=== PATIENT | male | born 1965 | race Caucasian/White ===

== ENCOUNTER 2017-04-06 12:55 | Outpatient (CLI) | payer BC ==
--- NOTE | 2017-04-06 14:51 | MRI ---
MRI OF THE RIGHT ELBOW: Date: 04/06/17 PROVIDED CLINICAL HISTORY: Right elbow pain status post injury. FINDINGS: Evaluation is limited due to metallic susceptibility artifact from hardware in the humeral shaft. There is evidence for a full thickness retracted tear of the distal biceps tendon from its radial at tachment and retraction proximally by about 6.3 cm. The brachialis and triceps insertions appear nor mal. There is evidence for partial thickness undersurface tearing involving the common extensor tendon or igin. The common flexor tendon origin appears intact. The medial and lateral elbow ligaments are suboptimally evaluated on this examination. No definite l igamentous abnormality is evident. There is noncircumscribed fluid signal intensity present within the subcutaneous adipose layer about the medial, posterior, and lateral aspects of the elbow. There is noncircumscribed fluid signal int ensity present within the fascial planes surrounding the distal biceps muscle. The courses of the re gional major neurovascular structures appear grossly unremarkable. No focal concerning regional anna ow signal abnormality is evident. The amount of fluid within the elbow joint appears physiologic. IMPRESSION: 1. Full thickness retracted biceps tendon tear as described above. 2. Findings compatible with partial thickness undersurface tearing involving the common extensor or igin. POS: OFF
== END 2017-04-06 12:56 | disposition home or self-care (01) ==
LOC: SCSMRI 12:55
PROVIDERS: ATTEND Orthopaedic Surgery
DX: M25.521 Pain in right elbow (principal); S46.211A Strain of muscle, fascia and tendon of other parts of biceps, right arm, initial encounter

== ENCOUNTER 2017-04-19 10:18 | Outpatient (CLI) | payer BC ==
[2017-04-19 11:45] LABS: #Eosinphils 0.1 thou/uL (0.0-0.7); #Lymphocytes 1.6 thou/uL (1.20-3.40); #Monocytes 0.4 thou/uL (0.11-0.59); #Neutrophils 6.5 thou/uL (1.40-6.50); %Basophils 0.1 % (0.0-1.0); %Eosinophils 0.7 % (0.0-10.0); %Lymphocytes 18.6 % (21.0-51.0); Hematocrit 44.9 % (42.0-52.0); Red Blood Cell (RBC) Count 5.11 mill/uL (4.70-6.10); White Blood Cell (WBC) Count 8.5 thou/uL (4.8-10.8)
[2017-04-19 12:03] LABS: Anion Gap 12 mmol/L (10-20); BUN (Urea Nitrogen) 10 mg/dL (8.9-20.6); Calc. Creatinine Clearance 0 mL/min (70-130); Calcium 8.9 mg/dL (7.8-10.44); Carbon Dioxide 22 mmol/L (22-29); Chloride 107 mmol/L (98-107); Estimated GFR-MDRD Greater than 90
--- NOTE | 2017-04-19 13:28 | EKG ---
Test Reason : Blood Pressure : / mmHG Vent. Rate : 063 BPM Atrial Rate : 063 BPM P-R Int : 152 ms QRS Dur : 098 ms QT Int : 442 ms P-R-T Axes : 039 -03 041 degrees QTc Int : 452 ms Normal sinus rhythm Minimal voltage criteria for LVH, may be normal variant Inferior infarct , age undetermined Abnormal ECG When compared with ECG of 28-JAN-2001 20:16, Inferior infarct is now Present Confirmed by DR. Ej YOUNGBLOOD ([id number]) on 04/19/2017 1:28:24 PM Referred By: IERO Confirmed By:DR. Ej YOUNGBLOOD
== END 2017-04-19 10:19 | disposition home or self-care (01) ==
LOC: LABBT 10:18
PROVIDERS: ATTEND Orthopaedic Surgery
DX: Z01.818 Encounter for other preprocedural examination (principal); S53.491A Other sprain of right elbow, initial encounter
CPT/HCPCS: 80048; 85025; 93005; 93010

== ENCOUNTER 2017-04-21 06:02 | Day surgery (SDC) | payer BC ==
[2017-04-19 10:50] VITALS: BMI 40.1
[2017-04-21] MEDS ORDERED: Fentanyl 100 MCG/2 ML VIAL ONE (06:24)
[2017-04-21] MEDS ORDERED: Midazolam HCl 2 mg/2 ml Vial ONE (06:24)
[2017-04-21] MEDS ORDERED: Ropivacaine 0.2% HCl/PF 20 ML ONE (06:25)
[2017-04-21] MEDS ORDERED: Lidocaine 1% (PF) 30 ML VIAL ONE ×2 (06:25→06:35)
[2017-04-21] MEDS ORDERED: Dexamethasone 4 mg/ml Vial ONE (06:37)
[2017-04-21] MEDS ORDERED: CEFAZOLIN/Water 2 GM/20 ML SYRINGE ONE (06:41)
[2017-04-21] MEDS ORDERED: Dexamethasone 20 MG/5 ML VIAL ONE (07:34)
[2017-04-21] MEDS ORDERED: Propofol 200 MG/20 ML VIAL ONE (07:34)
[2017-04-21] MEDS ORDERED: Ondansetron HCl/PF 4 MG/2 ML Vial ONE (07:34)
[2017-04-21] MEDS ORDERED: Ketorolac Tromethamine 30 MG/ML VIAL ONE (07:34)
--- NOTE | 2017-04-21 15:15 | OP ---
DATE OF PROCEDURE: 04/21/2017 PREOPERATIVE DIAGNOSIS: Right distal biceps rupture. POSTOPERATIVE DIAGNOSIS: Right distal biceps rupture. PROCEDURES PERFORMED: 1. Open distal biceps tendon repair. 2. Placement of long arm splint, right upper extremity. SURGEON: Hammad Vela M.D. HOG BUYER: Kervin Reyes PA-C. BLOOD LOSS: Minimal. ANESTHESIA: The patient had general anesthetic as well as a block. IMPLANTS: Biceps button from [employer]. INDICATIONS: This is an active male nearly 3 weeks ago now, ruptured his biceps tendon. On MRI scan, it was found to be torn and at this time is presenting for repair. DESCRIPTION OF PROCEDURE: After all appropriate consent forms were explained and signed, he was taken to the operating room and at this time was given general anesthetic. Once the level of anesthesia was appropriate, the right upper extremity were then prepped and draped in standard surgical fashion. Tourniquet was placed as far up in the arm as possible prior to doing this. At this time, the limb was exsanguinated and tourniquet taken up to 250 mmHg. Using loupe magnification, a 10 blade was used to make a horizontal incision in the distal crease of the elbow. This was done through skin only. Bipolar cautery was used to coagulate any brisk venous bleeding. At this time, we dissected out the vein and pulled this aside and we were able to go proximally to reach the biceps tendon. A copious amount of serosanguineous fluid was evacuated from this area. We then pulled this down and freshened the edges up and stitched this. We pulled tightly on this and knew that this is going to be very tight. At this time, we did find our hole leading down to the radial tuberosity and once this was done, radial tuberosity soft tissue was removed from this area. We then cleaned this off with a curette and rongeur. We then drilled a pin bicortically, reamed a 7 mm reamer unicortically and placed our Arth[employer] biceps button through, bicortically flipped it and then pulled the tendon down into the hole. This was very taut and was around 95-100 degrees of extension with the tendon engaged. When we went into more extension, the tendon pulled out, so we fixed this at 95-100 degrees of extension, hoping that the patient will stretch this out in the future and also when our tourniquet was let down. This was then tied in standard fashion. We then thoroughly irrigated and dried. We then used deep Vicryl and a running Stratafix as well as glue to close our incision. Once the glue had dried, the tourniquet was let down. We waited at least 5 minutes making sure we did not have any significant bleeding. The arm pinked up nice radial pulse and at this time, a bulky sterile dressing was applied as well as a posterior splint with the arm in nearly 90 degrees. Once this dried, the patient was awakened and taken to the recovery room in stable condition. All counts were correct at the end of the case and he did receive preoperative IV antibiotics. CHAY
== END 2017-04-21 11:00 | disposition home or self-care (01) ==
LOC: SDC 06:02
PROVIDERS: ATTEND Orthopaedic Surgery
PROC: 0LQ30ZZ Repair Right Upper Arm Tendon, Open Approach (ICD-10-PCS; principal; 2017-04-21)
DX: S46.211A Strain of muscle, fascia and tendon of other parts of biceps, right arm, initial encounter (principal); I10 Essential (primary) hypertension; M19.90 Unspecified osteoarthritis, unspecified site; F90.9 Attention-deficit hyperactivity disorder, unspecified type; J45.909 Unspecified asthma, uncomplicated; Z88.2 Allergy status to sulfonamides; Z79.899 Other long term (current) drug therapy; Z98.890 Other specified postprocedural states; Z82.49 Family history of ischemic heart disease and other diseases of the circulatory system; Z83.3 Family history of diabetes mellitus
CPT/HCPCS: C1713; J1100; J1885; J2001; J2250; J2405; J2704; J2795; J3010

== ENCOUNTER 2019-11-27 14:04 | Emergency (ER) | payer BC, SELFPAY ==
[2019-11-27] MEDS ORDERED: Potassium Chloride 20 MEQ TAB ONE (14:32)
[2019-11-27 16:18] LABS: Anion Gap 12 mmol/L (10-20); BUN (Urea Nitrogen) 20 mg/dL (8.4-25.7); Calc. Creatinine Clearance 0 mL/min (70-130); Calcium 9.4 mg/dL (7.8-10.44); Carbon Dioxide 30 mmol/L (22-29); Chloride 93 mmol/L (98-107); Estimated GFR-MDRD 77; Glucose 270 mg/dL (70-105); Sodium 132 mmol/L (136-145)
[2019-11-27 16:25] LABS: Potassium 2.8 mmol/L (3.5-5.1)
--- NOTE | 2019-11-30 12:56 | EKG ---
Test Reason : LOW K Blood Pressure : / mmHG Vent. Rate : 092 BPM Atrial Rate : 092 BPM P-R Int : 152 ms QRS Dur : 108 ms QT Int : 382 ms P-R-T Axes : 057 -12 096 degrees QTc Int : 472 ms Normal sinus rhythm Nonspecific ST and T wave abnormality Abnormal ECG Confirmed by ALBARO PEPE ([id number]), film or videotape editor STAR MOLINA ([id number]) on 11/30/2019 12:55:44 PM Referred By: ISAURA Confirmed By:ALBARO Sanders
== END 2019-11-27 16:45 | disposition home or self-care (01) ==
LOC: ERS 14:04
DX: E87.6 Hypokalemia (principal); I10 Essential (primary) hypertension; Z79.899 Other long term (current) drug therapy
CPT/HCPCS: 36415; 93005

== ENCOUNTER 2020-07-03 14:23 | Inpatient (IN) | payer SELFPAY ==
[~2020-07-03 14:23] MED LIST: Iopamidol-370 76% 500 ML 1 ML ONE
[2020-07-03] MEDS ORDERED: cefTRIAXone\\ROCEPHIN 2 GM VIAL ONE (14:53)
[2020-07-03] MEDS ORDERED: Azithromycin 500 MG VIAL ONE (14:53)
[2020-07-03] MEDS ORDERED: Dexamethasone 10 MG/ML VIAL ONE (14:53)
[2020-07-03 15:10] LABS: #Lymphocytes 0.6 thou/uL (1.20-3.40); #Monocytes 0.2 thou/uL (0.11-0.59); #Neutrophils 13.6 thou/uL (1.40-6.50); %Lymphocytes 4.2 % (21.0-51.0); %Monocytes 1.6 % (0.0-10.0); %Neutrophils 94.2 % (42.0-75.0); Hemoglobin 14.1 g/dL (14.0-18.0); Mean Corpuscular HGB CONC 33.8 g/dL (32.0-36.0); Mean Corpuscular Hemoglobin 28.8 pg (27.0-31.0); Mean Corpuscular Volume 85.1 fL (78.0-98.0); Mean Platelet Volume 8.2 fL (7.4-10.4); Platelet Count 270 thou/uL (130-400); RBC Distribution Width 12.7 % (11.5-14.5); Red Blood Cell (RBC) Count 4.91 mill/uL (4.70-6.10); White Blood Cell (WBC) Count 14.4 thou/uL (4.8-10.8)
--- NOTE | 2020-07-03 15:12 | RAD ---
Chest one view HISTORY: Dyspnea. COVID positive. COMPARISON: 02/05/2017. FINDINGS: Cardiac silhouette is magnified by projection and partially obscured by prominent patchy il l-defined areas of peripheral groundglass parenchymal infiltrate throughout each lung. No evidence of pneumothorax. Right hemidiaphragm remains slightly elevated. IMPRESSION : Dense multifocal bilateral infiltrates. Correlate for COVID pneumonitis.
[2020-07-03] MEDS ORDERED: Ketorolac Tromethamine 30 MG/ML VIAL ONE (15:13)
[2020-07-03 15:18] LABS: INR-International Normal Ratio 1.1; PTT 28.8 sec (22.9-36.1); Prothrombin Time 14.2 sec (12.0-14.7)
[2020-07-03 15:19] LABS: D-Dimer Test 1.12 *mcg/mL (0.27-0.43)
[2020-07-03 16:06] LABS: Albumin 3.4 g/dL (3.5-5.0)
[2020-07-03 16:07] LABS: Chloride 95 mmol/L (98-107); Potassium 4.3 mmol/L (3.5-5.1); Sodium 129 mmol/L (136-145)
[2020-07-03 16:08] LABS: Calcium 8.1 mg/dL (7.8-10.44); Glucose 412 mg/dL (70-105)
[2020-07-03 16:09] LABS: Globulin 3.7 g/dL (2.4-3.5); Protein, Total 7.1 g/dL (6.0-8.3)
[2020-07-03 16:10] LABS: Anion Gap 16 mmol/L (10-20); Bilirubin, Total 0.4 mg/dL (0.2-1.2); Carbon Dioxide 22 mmol/L (22-29)
[2020-07-03 16:11] LABS: Alkaline Phosphatase 96 U/L (40-110)
[2020-07-03 16:12] LABS: Calc. Creatinine Clearance 0 mL/min (70-130)
[2020-07-03 16:13] LABS: BUN (Urea Nitrogen) 15 mg/dL (8.4-25.7)
[2020-07-03 16:14] LABS: ALT (SGPT) 51 U/L (8-55); AST (SGOT) 24 U/L (5-34)
[2020-07-03 16:15] LABS: CK (CPK) 130 U/L (30-200)
--- NOTE | 2020-07-03 16:52 | CT ---
CT PULMONARY ANGIOGRAM WITH IV CONTRAST AND 3D POSTPROCESSIN07/03/20 HISTORY: 54-year-old male with difficulty breathing. COVID positive, status getting worse today. FINDINGS: The pulmonary arterial vasculature is inadequately opacified to satisfactorily evaluate for pulmonary embolism. The thoracic aorta is better opacified without evidence of aneurysmal dissection. No pleur al or pericardial effusions are seen. There are multifocal patchy areas of ground glass opacities and consolidation in the lung chambers bilaterally. There are prominent and mildly enlarged lymph nodes in the mediastinum measuring up to 12 mm. There are degenerative changes in the spine. Upper abdominal tomograms demonstrate fatty infiltration of the liver. IMPRESSION: 1. Exam is nondiagnostic for pulmonary embolism. 2. Findings are consistent with COVID-19 pneumonia. 3. Fatty liver. POS: ROGELIO
[2020-07-03] MEDS ORDERED: Ondansetron PF 4 MG/2 ML Vial IVP PRN (17:06)
[2020-07-03] MEDS ORDERED: Bisacodyl 5 MG TAB PO PRN (17:06)
[2020-07-03] MEDS ORDERED: Dextrose 5% in Water 1,000 ML IV PRN (17:09)
[2020-07-03] MEDS ORDERED: HumaLOG 300 UNITS/3 ML VIAL SC PRN (17:09)
[2020-07-03] MEDS ORDERED: Dextrose 50% Abboject 50 ML SYRINGE SLOW IVP PRN (17:09)
--- NOTE | 2020-07-03 17:19 | PDOC.HHP ---
Hospitalist HPI - History of Present Illness Shortness of breath History of Present Illness: Patient is a pleasant 54-year-old gentleman who was seen in the emergency room on July 03, 2020. He reports that he tested positive for Covid around June 25, 2020. His symptoms reportedly started around the same time, and he thinks he got it from his daughter because his daughter was sick with Covid before that. He reports generalized weakness, body aches, cough that is productive of sputum and shortness of breath. Shortness of breath is worse with exertion. He denies any chest pain. He denies any nausea, vomiting, diarrhea, loss of taste or loss of smell. He presented to the emergency room because of the above symptoms. In the emergency room, he was noted to be hypoxic and had to be transitioned to high flow oxygen. He was referred to hospitalist service for admission and further management. ED Course: Pulse: 115, Resp: 26, Temp: 100.5 (Oral), Pain: 0, O2 sat: 87 5L, Time: 07/03/2020 14:37. Hospitalist ROS - Review of Systems Constitutional: reports: weakness, malaise. denies: fever, chills, sweats Respiratory: reports: cough, shortness of breath, SOB with excertion, sputum. denies: dry, hemoptysis, pleuritic pain, wheezing Cardiovascular: denies: chest pain, palpitations, orthopnea, paroxysmal noc. dyspnea, edema, light headedness Gastrointestinal: denies: nausea, vomiting, abdominal pain, diarrhea, constipa tion, melena, hematochezia All other systems reviewed; all pertinent +/- noted in HPI/Subj - Medication Medications: Allergies: Sulfa Home medications: amLODIPine MonJul 03, 2020 15:21 AMAURI Dietrich Elizabeth tablet : Strength - 10 mg : ORAL Patient Dose: UNK mg Oral once a day. Adderall MonJul 03, 2020 15:21 AMAURI Dietrich Elizabeth tablet : Strength - 10 mg : ORAL Patient Dose: UNK mg Oral once a day. metFORMIN MonJul 03, 2020 15:21 AMAURI Dietrich Elizabeth tablet : Strength - 500 mg : ORAL Patient Dose: Unknown. traMADol MonJul 03, 2020 15:22 AMAURI Dietrich Elizabeth tablet : Strength - 50 mg : ORAL Patient Dose: Unknown. Hospitalist History - Past Medical History Other Medical History: Past medical history: Diabetes mellitus type 2 and hypertension Surgical history: Right knee surgery and right arm surgery Social history: Occasional alcohol use, patient denies tobacco use or recreational drug use. Family history: Pacemaker in his father. - Exam General Appearance: awake alert Eye: anicteric sclera ENT: normocephalic atraumatic Neck: supple, no thyromegaly Heart: RRR, no rubs Respiratory: normal chest expansion, rales, rhonchi Gastrointestinal: soft, non-tender, normal bowel sounds Extremities: no edema Skin: no rashes Musculoskeletal: no muscle wasting Psychiatric: normal affect, normal behavior, A&O x 3 Hospitalist Results - Labs Result Diagrams: 07/03/20 14:41 07/03/20 15:43 Lab results: WBC 14.4 thou/uL (4.8-10.8) H 07/03/20 14:41 Hgb 14.1 g/dL (14.0-18.0) 07/03/20 14:41 Hct 41.8 % (42.0-52.0) L 07/03/20 14:41 MCV 85.1 fL (78.0-98.0) 07/03/20 14:41 Plt Count 270 thou/uL (130-400) 07/03/20 14:41 Neutrophils % 94.2 % (42.0-75.0) H 07/03/20 14:41 Sodium 129 mmol/L (136-145) L 07/03/20 15:43 Potassium 4.3 mmol/L (3.5-5.1) 07/03/20 15:43 Chloride 95 mmol/L (98-107) L 07/03/20 15:43 Carbon Dioxide 22 mmol/L (22-29) 07/03/20 15:43 BUN 15 mg/dL (8.4-25.7) 07/03/20 15:43 Creatinine 1.04 mg/dL (0.7-1.3) 07/03/20 15:43 Glucose 412 mg/dL (70-105) H 07/03/20 15:43 Lactic Acid 3.0 mmol/L (0.5-2.2) H 07/03/20 14:41 Calcium 8.1 mg/dL (7.8-10.44) 07/03/20 15:43 Total Bilirubin 0.4 mg/dL (0.2-1.2) 07/03/20 15:43 AST 24 U/L (5-34) 07/03/20 15:43 ALT 51 U/L (8-55) 07/03/20 15:43 Alkaline Phosphatase 96 U/L (40-110) 07/03/20 15:43 Creatine Kinase 130 U/L (30-200) 07/03/20 15:43 Troponin I Less than 0.010 ng/mL (< 0.028) 07/03/20 14:41 Serum Total Protein 7.1 g/dL (6.0-8.3) 07/03/20 15:43 Albumin 3.4 g/dL (3.5-5.0) L 07/03/20 15:43 - Radiology Interpretation Chest x-ray Additional Comment: Chest one view HISTORY: Dyspnea. COVID positive. COMPARISON: 02/05/2017. FINDINGS: Cardiac silhouette is magnified by projection and partially obscured by prominent patchy il l-defined areas of peripheral groundglass parenchymal infiltrate throughout each lung. No evidence of pneumothorax. Right hemidiaphragm remains slightly elevated. IMPRESSION : Dense multifocal bilateral infiltrates. Correlate for COVID pneumonitis. CT scan - chest Additional Comment: CT PULMONARY ANGIOGRAM WITH IV CONTRAST AND 3D POSTPROCESSIN07/03/20 HISTORY: 54-year-old male with difficulty breathing. COVID positive, status getting worse today. FINDINGS: The pulmonary arterial vasculature is inadequately opacified to satisfactorily evaluate for pulmonary embolism. The thoracic aorta is better opacified without evidence of aneurysmal dissection. No pleur al or pericardial effusions are seen. There are multifocal patchy areas of ground glass opacities and consolidation in the lung chambers bilaterally. There are prominent and mildly enlarged lymph nodes in the mediastinum measuring up to 12 mm. There are degenerative changes in the spine. Upper abdominal tomograms demonstrate fatty infiltration of the liver. IMPRESSION: 1. Exam is nondiagnostic for pulmonary embolism. 2. Findings are consistent with COVID-19 pneumonia. 3. Fatty liver. Hospitalist H&P A/P - Problem (1) Acute respiratory failure with hypoxia Code(s): J96.01 - ACUTE RESPIRATORY FAILURE WITH HYPOXIA Status: Acute (2) Pneumonia due to COVID-19 virus Code(s): U07.1 - COVID-19; J12.82 - PNEUMONIA DUE TO CORONAVIRUS DISEASE 2019 Status: Acute (3) Sepsis Code(s): A41.9 - SEPSIS, UNSPECIFIED ORGANISM Status: Acute (4) Diabetes mellitus type 2 in obese Code(s): E11.69 - TYPE 2 DIABETES MELLITUS WITH OTHER SPECIFIED COMPLICATION; E66.9 - OBESITY, UNSPECIFIED Status: Chronic (5) Hypertension Code(s): I10 - ESSENTIAL (PRIMARY) HYPERTENSION Status: Chronic - Plan Plan: Patient to be admitted to hospital. Start dexamethasone, zinc and vitamin C. Patient has received ceftriaxone and azithromycin, continue for now. Follow inflammatory markers. Continue Accu-Cheks and insulin sliding scale. Monitor vital signs and titrate antihypertensives as needed. Level of risk: Moderate Level of complexity: Moderate Primary CARE provider:Dr. Vargas
[2020-07-03] MEDS ORDERED: Zinc Sulfate 220 MG CAP PO SCH (17:45)
[2020-07-03] MEDS ORDERED: Ascorbic Acid 500 mg Chewable Tablet PO SCH (17:45)
[2020-07-03 18:07] LABS: Lactic Acid 1.9 mmol/L (0.5-2.2)
[2020-07-03] MEDS: Zinc Sulfate 220 MG CAP PO SCH (19:14)
[2020-07-03] MEDS: Enoxaparin Sodium 40 MG/0.4 ML SYRINGE SC SCH (20:17)
[2020-07-04 05:40] LABS: Anion Gap 18 mmol/L (10-20); BUN (Urea Nitrogen) 20 mg/dL (8.4-25.7); Calc. Creatinine Clearance 208 mL/min (70-130); Calcium 8.5 mg/dL (7.8-10.44); Carbon Dioxide 22 mmol/L (22-29); Chloride 97 mmol/L (98-107); Glucose 352 mg/dL (70-105); Potassium 4.5 mmol/L (3.5-5.1); Sodium 132 mmol/L (136-145)
[2020-07-04 06:10] LABS: Hemoglobin 13.5 g/dL (14.0-18.0); Lymphocytes 15 % (21-51); MDiff Complete? YES; Mean Corpuscular Hemoglobin 28.3 pg (27.0-31.0); Mean Corpuscular Volume 85.8 fL (78.0-98.0); Mean Platelet Volume 8.4 fL (7.4-10.4); Neutrophil 85 % (42-75); Platelet Count 270 thou/uL (130-400); RBC Distribution Width 12.6 % (11.5-14.5); Red Blood Cell (RBC) Count 4.78 mill/uL (4.70-6.10); White Blood Cell (WBC) Count 10.2 thou/uL (4.8-10.8)
[2020-07-04] MEDS: HumaLOG 300 UNITS/3 ML VIAL SC PRN ×3 (06:11→16:19)
[2020-07-04] MEDS: Enoxaparin Sodium 40 MG/0.4 ML SYRINGE SC SCH ×2 (08:24→19:42)
[2020-07-04] MEDS: Ascorbic Acid 500 mg Chewable Tablet PO SCH (08:24)
[2020-07-04] MEDS ORDERED: FLU VACC QS2020-21(6MOS UP)/PF 60 MCG/0.5 ML SYRINGE IM ONE (09:00)
[2020-07-04] MEDS: Dexamethasone 4 mg/ml Vial SLOW IVP SCH (15:20)
[2020-07-04] MEDS: cefTRIAXone\\ROCEPHIN 1 GM in Sodium Chloride 0.9% 100 ML IVPB SCH (15:21)
[2020-07-04] MEDS: Azithromycin 500 MG in Sodium Chloride 0.9% 250 ML 250 ML IVPB SCH (16:13)
--- NOTE | 2020-07-04 17:12 | PDOC.HOSPP ---
- Subjective Encounter Date: 07/04/20 Encounter Time: 08:00 Subjective: Patient seen for follow-up regarding COVID-19 pneumonia. Reports feeling better - Objective Vital Signs & Weight: Vital Signs (12 hours) Temp Pulse Resp BP Pulse Ox 07/04/20 15:21 99 F 79 26 H 137/86 97 07/04/20 11:28 98.5 F 84 32 H 136/83 95 07/04/20 08:30 98.8 F 94 22 H 134/80 93 L Weight Weight 310 lb 14.4 oz I&O: 07/03/20 07/04/20 07/05/20 06:59 06:59 06:59 Intake Total 620 Output Total 1100 250 Balance -480 -250 Result Diagrams: 07/04/20 04:56 07/04/20 04:56 Additional Labs: Accuchecks 07/04/20 07/04/20 07/04/20 16:17 11:26 06:04 POC Glucose 311 H 339 H 349 H 07/03/20 20:15 POC Glucose 470 H Labs and MAR reviewed by fl Hospitalist ROS - Review of Systems Respiratory: reports: SOB with excertion Cardiovascular: denies: chest pain, palpitations, orthopnea, paroxysmal noc. dyspnea, edema, light headedness Gastrointestinal: denies: nausea, vomiting, abdominal pain, diarrhea, constipation, melena, hematochezia - Medication Medications: Active Medications Generic Name Dose Route Start Last Admin Trade Name Freq PRN Reason Stop Dose Admin Ascorbic Acid 1,000 mg 07/04/20 09:00 07/04/20 08:24 Ascorbic Acid 500 Mg Chewable Tablet PO 1,000 mg DAILY DARRELL Administration Dexamethasone 6 mg 07/04/20 15:00 07/04/20 15:20 Dexamethasone 4 Mg/Ml Vial SLOW IVP 6 mg 1500 DARRELL Administration Enoxaparin Sodium 40 mg 07/03/20 21:00 07/04/20 08:24 Enoxaparin Sodium 40 Mg/0.4 Ml Syringe SC 40 mg Q12HR DARRELL Administration Ceftriaxone Sodium 1 gm/ 100 mls @ 200 mls/hr 07/04/20 15:00 07/04/20 15:21 Sodium Chloride IVPB 100 mls Q24HR DARRELL Administration Azithromycin 500 mg/ Sodium 250 mls @ 250 mls/hr 07/04/20 15:30 07/04/20 1 6:13 Chloride IVPB 250 mls Q24HR DARRELL Administration Insulin Human Lispro 0 units 07/03/20 23:45 07/04/20 16:19 Humalog 300 Units/3 Ml Vial SC 8 unit .MODERATE SLIDING SC PRN Administration Moderate Correctional Scale Sodium Chloride 10 ml 07/03/20 21:00 07/04/20 08:26 Flush - Normal Saline 10 Ml Syringe IVF 10 ml Q12HR DARRELL Administration Zinc Sulfate 220 mg 07/04/20 09:00 07/03/20 19:14 Zinc Sulfate 220 Mg Cap PO 220 mg DAILY DARRELL Administration - Exam General Appearance: awake alert Eye: anicteric sclera ENT: moist mucosa Neck: supple Heart: RRR Respiratory: CTAB Gastrointestinal: soft, non-tender Skin: no rashes Psychiatric: normal affect, normal behavior Hosp A/P (1) Acute respiratory failure with hypoxia Code(s): J96.01 - ACUTE RESPIRATORY FAILURE WITH HYPOXIA Status: Acute (2) Pneumonia due to COVID-19 virus Code(s): U07.1 - COVID-19; J12.82 - PNEUMONIA DUE TO CORONAVIRUS DISEASE 2019 Status: Acute (3) Sepsis Code(s): A41.9 - SEPSIS, UNSPECIFIED ORGANISM Status: Acute (4) Diabetes mellitus type 2 in obese Code(s): E11.69 - TYPE 2 DIABETES MELLITUS WITH OTHER SPECIFIED COMPLICATION; E66.9 - OBESITY, UNSPECIFIED Status: Chronic (5) Hypertension Code(s): I10 - ESSENTIAL (PRIMARY) HYPERTENSION Status: Chronic - Plan - Plan Continue dexamethasone, zinc and vitamin C. Continue Rocephin and azithromycin. Follow inflammatory markers. Continue Accu-Cheks and insulin sliding scale. Monitor vital signs and titrate antihypertensives as needed.
[2020-07-04] MEDS: Pregabalin 50 MG CAP PO SCH (19:41)
[2020-07-04] MEDS: Insulin Glargine 10 UNITS in Pre-Filled Syringe 1 EACH SC SCH (19:42)
[2020-07-04] MEDS: Tramadol Hcl [Tramadol Hcl Er] 200 MG Tab.Er.24h PO SCH (21:51)
[2020-07-05 04:55] LABS: #Lymphocytes 1.2 thou/uL (1.20-3.40); #Monocytes 0.6 thou/uL (0.11-0.59); %Basophils 0.1 % (0.0-1.0); %Eosinophils 0.1 % (0.0-10.0); %Lymphocytes 10.4 % (21.0-51.0); %Monocytes 5.1 % (0.0-10.0); %Neutrophils 84.4 % (42.0-75.0); Mean Corpuscular HGB CONC 31.9 g/dL (32.0-36.0); Mean Corpuscular Hemoglobin 27.4 pg (27.0-31.0); Mean Corpuscular Volume 85.8 fL (78.0-98.0); Platelet Count 331 thou/uL (130-400); RBC Distribution Width 12.7 % (11.5-14.5); Red Blood Cell (RBC) Count 4.76 mill/uL (4.70-6.10); White Blood Cell (WBC) Count 11.8 thou/uL (4.8-10.8)
[2020-07-05 05:19] LABS: Anion Gap 14 mmol/L (10-20); BUN (Urea Nitrogen) 24 mg/dL (8.4-25.7); Calc. Creatinine Clearance 183 mL/min (70-130); Calcium 8.3 mg/dL (7.8-10.44); Carbon Dioxide 24 mmol/L (22-29); Chloride 99 mmol/L (98-107); Glucose 374 mg/dL (70-105); Potassium 4.3 mmol/L (3.5-5.1); Sodium 133 mmol/L (136-145)
[2020-07-05] MEDS: HumaLOG 300 UNITS/3 ML VIAL SC PRN ×4 (05:38→20:14)
[2020-07-05] MEDS: Enoxaparin Sodium 40 MG/0.4 ML SYRINGE SC SCH ×2 (08:03→20:14)
[2020-07-05] MEDS: Lisinopril 5 MG TAB PO SCH (08:04)
[2020-07-05] MEDS: Amlodipine 10 MG TAB PO SCH (08:04)
[2020-07-05] MEDS: Zinc Sulfate 220 MG CAP PO SCH (08:04)
[2020-07-05] MEDS: Pregabalin 50 MG CAP PO SCH ×2 (08:05→20:13)
[2020-07-05] MEDS: Ascorbic Acid 500 mg Chewable Tablet PO SCH (08:05)
[2020-07-05] MEDS ORDERED: D AMPHETAMINE 30 MG PO SCH (09:00)
[2020-07-05] MEDS: cefTRIAXone\\ROCEPHIN 1 GM in Sodium Chloride 0.9% 100 ML IVPB SCH (15:30)
[2020-07-05] MEDS: Dexamethasone 4 mg/ml Vial SLOW IVP SCH (15:31)
--- NOTE | 2020-07-05 16:00 | PDOC.HOSPP ---
- Subjective Encounter Date: 07/05/20 Encounter Time: 08:30 Subjective: Patient seen for follow-up regarding respiratory failure. He denies chest pain. - Objective Vital Signs & Weight: Vital Signs (12 hours) Temp Pulse Resp BP Pulse Ox 07/05/20 11:15 98.9 F 70 30 H 119/71 94 L 07/05/20 08:04 98 F 63 28 H 116/73 94 L 07/05/20 05:11 98 Weight Weight 310 lb 14.4 oz I&O: 07/04/20 07/05/20 07/06/20 06:59 06:59 06:59 Intake Total 620 2530 Output Total 1100 910 Balance -480 1620 Result Diagrams: 07/05/20 04:33 07/05/20 04:33 Additional Labs: Accuchecks 07/05/20 07/05/20 07/04/20 15:35 11:14 19:44 POC Glucose 192 H 293 H 347 H 07/04/20 16:17 POC Glucose 311 H I reviewed patient's labs and MAR EKG Reviewed by me: Yes (Normal sinus rhythm on telemetry) Hospitalist ROS - Review of Systems Cardiovascular: denies: chest pain, palpitations, orthopnea, paroxysmal noc. dyspnea, edema, light headedness Gastrointestinal: denies: nausea, vomiting, abdominal pain, diarrhea, constipation, melena, hematochezia - Medication Medications: Active Medications Generic Name Dose Route Start Last Admin Trade Name Freq PRN Reason Stop Dose Admin Amlodipine Besylate 10 mg 07/05/20 09:00 07/05/20 08:04 Amlodipine 10 Mg Tab PO 10 mg DAILY DARRELL Administration Ascorbic Acid 1,000 mg 07/04/20 09:00 07/05/20 08:05 Ascorbic Acid 500 Mg Chewable Tablet PO 1,000 mg DAILY DARRELL Administration Dexamethasone 6 mg 07/04/20 15:00 07/05/20 15:31 Dexamethasone 4 Mg/Ml Vial SLOW IVP 6 mg 1500 DARRELL Administration Enoxaparin Sodium 40 mg 07/03/20 21:00 07/05/20 08:03 Enoxaparin Sodium 40 Mg/0.4 Ml Syringe SC 40 mg Q12HR DARRELL Administration Ceftriaxone Sodium 1 gm/ 100 mls @ 200 mls/hr 07/04/20 15:00 07/05/20 15:30 Sodium Chloride IVPB 100 mls Q24HR DARRELL Administration Azithromycin 500 mg/ Sodium 250 mls @ 250 mls/hr 07/04/20 15:30 07/04/20 16:13 Chloride IVPB 250 mls Q24HR DARRELL Administration Insulin Glargine 10 units/ 0.1 mls @ 0 mls/hr 07/04/20 21:00 07/04/20 19:42 Miscellaneous Medication SC 0.1 mls HS DARRELL Administration Insulin Human Lispro 0 units 07/03/20 23:45 07/05/20 12:17 Humalog 300 Units/3 Ml Vial SC 6 unit .MODERATE SLIDING SC PRN Administration Moderate Correctional Scale Lisinopril 5 mg 07/05/20 09:00 07/05/20 08:04 Lisinopril 5 Mg Tab PO 5 mg DAILY DARRELL Administration Tramadol Hcl [ 0 each 07/04/20 21:00 07/04/20 21:51 Tramadol Hcl Er] 200 PO 1 each Mg Tab.Er.24h 2100 DARRELL Administration Pregabalin 100 mg 07/04/20 21:00 07/05/20 08:05 Pregabalin 50 Mg Cap PO 100 mg BID DARRELL Administration Sodium Chloride 10 ml 07/03/20 21:00 07/05/20 08:04 Flush - Normal Saline 10 Ml Syringe IVF 10 ml Q12HR DARRELL Administration Zinc Sulfate 220 mg 07/04/20 09:00 07/05/20 08:04 Zinc Sulfate 220 Mg Cap PO 220 mg DAILY DARRELL Administration - Exam General Appearance: awake alert Eye: anicteric sclera ENT: normocephalic atraumatic Neck: symmetric, no lymphadenopathy Heart: RRR Respiratory: CTAB Gastrointestinal: soft, non-tender Skin: no rashes Psychiatric: normal affect, normal behavior Hosp A/P (1) Acute respiratory failure with hypoxia Code(s): J96.01 - ACUTE RESPIRATORY FAILURE WITH HYPOXIA Status: Acute (2) Pneumonia due to COVID-19 virus Code(s): U07.1 - COVID-19; J12.82 - PNEUMONIA DUE TO CORONAVIRUS DISEASE 2019 Status: Acute (3) Sepsis Code(s): A41.9 - SEPSIS, UNSPECIFIED ORGANISM Status: Acute (4) Diabetes mellitus type 2 in obese Code(s): E11.69 - TYPE 2 DIABETES MELLITUS WITH OTHER SPECIFIED COMPLICATION; E66.9 - OBESITY, UNSPECIFIED Status: Chronic (5) Hypertension Code(s): I10 - ESSENTIAL (PRIMARY) HYPERTENSION Status: Chronic - Plan - Plan Patient continues to be on high flow oxygen. Patient is receiving dexamethasone, vitamin C and zinc. Patient is also on ceftriaxone and azithromycin. Monitor vital signs and titrate antihypertensives as needed.
[2020-07-05] MEDS: Azithromycin 500 MG in Sodium Chloride 0.9% 250 ML 250 ML IVPB SCH (16:16)
[2020-07-05] MEDS: Acetaminophen 325 MG TAB PO PRN (16:17)
[2020-07-05] MEDS: Insulin Glargine 10 UNITS in Pre-Filled Syringe 1 EACH SC SCH (20:13)
[2020-07-05] MEDS: Tramadol Hcl [Tramadol Hcl Er] 200 MG Tab.Er.24h PO SCH (20:14)
[2020-07-06 05:21] LABS: #Lymphocytes 1.2 thou/uL (1.20-3.40); #Monocytes 0.4 thou/uL (0.11-0.59); #Neutrophils 7.4 thou/uL (1.40-6.50); %Basophils 0.1 % (0.0-1.0); %Eosinophils 0.2 % (0.0-10.0); %Lymphocytes 13.5 % (21.0-51.0); %Monocytes 4.2 % (0.0-10.0); Hemoglobin 13.5 g/dL (14.0-18.0); Mean Corpuscular HGB CONC 32.2 g/dL (32.0-36.0); Mean Corpuscular Hemoglobin 27.5 pg (27.0-31.0); Mean Corpuscular Volume 85.4 fL (78.0-98.0); Mean Platelet Volume 7.7 fL (7.4-10.4); Platelet Count 360 thou/uL (130-400); RBC Distribution Width 12.5 % (11.5-14.5); Red Blood Cell (RBC) Count 4.93 mill/uL (4.70-6.10)
[2020-07-06 05:38] LABS: Anion Gap 14 mmol/L (10-20); BUN (Urea Nitrogen) 18 mg/dL (8.4-25.7); Calc. Creatinine Clearance 198 mL/min (70-130); Calcium 8.3 mg/dL (7.8-10.44); Carbon Dioxide 23 mmol/L (22-29); Chloride 98 mmol/L (98-107); Glucose 287 mg/dL (70-105); Potassium 4.3 mmol/L (3.5-5.1); Sodium 131 mmol/L (136-145)
[2020-07-06] MEDS: HumaLOG 300 UNITS/3 ML VIAL SC PRN ×4 (06:11→20:56)
[2020-07-06] MEDS: Amlodipine 10 MG TAB PO SCH (09:03)
[2020-07-06] MEDS: Zinc Sulfate 220 MG CAP PO SCH (09:03)
[2020-07-06] MEDS: Ascorbic Acid 500 mg Chewable Tablet PO SCH (09:03)
[2020-07-06] MEDS: Lisinopril 5 MG TAB PO SCH (09:03)
[2020-07-06] MEDS: Enoxaparin Sodium 40 MG/0.4 ML SYRINGE SC SCH ×2 (09:03→20:47)
[2020-07-06] MEDS: Pregabalin 50 MG CAP PO SCH ×2 (09:06→20:47)
--- NOTE | 2020-07-06 15:09 | PDOC.HOSPP ---
- Subjective Encounter Date: 07/06/20 Encounter Time: 08:00 Subjective: Patient seen for follow-up regarding acute respiratory failure, hypoxic. He denies any chest pain. Denies any nausea or vomiting. - Objective Vital Signs & Weight: Vital Signs (12 hours) Temp Pulse Resp BP Pulse Ox 07/06/20 11:17 98.6 F 72 24 H 120/76 99 07/06/20 09:18 98.3 F 63 24 H 134/63 93 L 07/06/20 09:03 62 07/06/20 04:31 97 07/06/20 04:15 98.3 F 62 18 108/68 96 Weight Weight 310 lb 14.4 oz I&O: 07/05/20 07/06/20 07/07/20 06:59 06:59 06:59 Intake Total 2530 720 480 Output Total 910 1800 Balance 1620 -1080 480 Result Diagrams: 07/06/20 05:06 07/06/20 05:06 Additional Labs: Accuchecks 07/06/20 07/05/20 07/05/20 11:17 20:10 15:35 POC Glucose 286 H 310 H 192 H Labs and MAR reviewed by dc Hospitalist ROS - Review of Systems Constitutional: denies: fever, chills, sweats, weakness, malaise Respiratory: reports: cough, dry Cardiovascular: denies: chest pain, palpitations, orthopnea, paroxysmal noc. dyspnea, edema, light headedness - Medication Medications: Active Medications Generic Name Dose Route Start Last Admin Trade Name Freq PRN Reason Stop Dose Admin Acetaminophen 650 mg 07/03/20 17:06 07/05/20 16:17 Acetaminophen 325 Mg Tab PO 650 mg Q4H PRN Administration Headache/Fever/Mild Pain (1-3) Amlodipine Besylate 10 mg 07/05/20 09:00 07/06/20 09:03 Amlodipine 10 Mg Tab PO 10 mg DAILY [facility] Administration Ascorbic Acid 1,000 mg 07/04/20 09:00 07/06/20 09:03 Ascorbic Acid 500 Mg Chewable Tablet PO 1,000 mg DAILY [facility] Administration Dexamethasone 6 mg 07/04/20 15:00 07/05/20 15:31 Dexamethasone 4 Mg/Ml Vial SLOW IVP 6 mg 1500 [facility] Administration Enoxaparin Sodium 40 mg 07/03/20 21:00 07/06/20 09:03 Enoxaparin Sodium 40 Mg/0.4 Ml Syringe SC 40 mg Q12HR [facility] Administration Ceftriaxone Sodium 1 gm/ 100 mls @ 200 mls/hr 07/04/20 15:00 07/05/20 15:30 Sodium Chloride IVPB 100 mls Q24HR [facility] Administration Azithromycin 500 mg/ Sodium 250 mls @ 250 mls/hr 07/04/20 15:30 07/05/20 16:16 Chloride IVPB 250 mls Q24HR [facility] Administration Insulin Glargine 10 units/ 0.1 mls @ 0 mls/hr 07/04/20 21:00 07/05/20 20:13 Miscellaneous Medication SC 0.1 mls HS [facility] Administration Insulin Human Lispro 0 units 07/03/20 23:45 07/05/20 20:14 Humalog 300 Units/3 Ml Vial SC 4 unit .BEDTIME SLIDING SC PRN Administration Bedtime Correctional Scale Insulin Human Lispro 0 units 07/03/20 23:45 07/06/20 12:35 Humalog 300 Units/3 Ml Vial SC 6 unit .MODERATE SLIDING SC PRN Administration Moderate Correctional Scale Lisinopril 5 mg 07/05/20 09:00 07/06/20 09:03 Lisinopril 5 Mg Tab PO 5 mg DAILY [facility] Administration Tramadol Hcl [ 0 each 07/04/20 21:00 07/05/20 20:14 Tramadol Hcl Er] 200 PO 1 each Mg Tab.Er.24h 2100 [facility] Administration Pregabalin 100 mg 07/04/20 21:00 07/06/20 09:06 Pregabalin 50 Mg Cap PO 100 mg BID [facility] Administration Sodium Chloride 10 ml 07/03/20 21:00 07/06/20 09:03 Flush - Normal Saline 10 Ml Syringe IVF 10 ml Q12HR [facility] Administration Zinc Sulfate 220 mg 07/04/20 09:00 07/06/20 09:03 Zinc Sulfate 220 Mg Cap PO 220 mg DAILY [facility] Administration - Exam General Appearance: awake alert General - other findings: Morbid obesity ENT: moist mucosa Neck: supple Heart: RRR Respiratory: rhonchi Gastrointestinal: soft, non-tender Skin: no rashes Psychiatric: normal affect Hosp A/P (1) Acute respiratory failure with hypoxia Code(s): J96.01 - ACUTE RESPIRATORY FAILURE WITH HYPOXIA Status: Acute (2) Pneumonia due to COVID-19 virus Code(s): U07.1 - COVID-19; J12.82 - PNEUMONIA DUE TO CORONAVIRUS DISEASE 2019 Status: Acute (3) Sepsis Code(s): A41.9 - SEPSIS, UNSPECIFIED ORGANISM Status: Acute (4) Diabetes mellitus type 2 in obese Code(s): E11.69 - TYPE 2 DIABETES MELLITUS WITH OTHER SPECIFIED COMPLICATION; E66.9 - OBESITY, UNSPECIFIED Status: Chronic (5) Hypertension Code(s): I10 - ESSENTIAL (PRIMARY) HYPERTENSION Status: Chronic - Plan - Plan Continue high flow oxygen Supportive management. Continue dexamethasone, vitamin C and zinc. Continue ceftriaxone and azithromycin. Monitor vital signs and titrate antihypertensives as needed.
[2020-07-06] MEDS: cefTRIAXone\\ROCEPHIN 1 GM in Sodium Chloride 0.9% 100 ML IVPB SCH (15:31)
[2020-07-06] MEDS: Dexamethasone 4 mg/ml Vial SLOW IVP SCH (15:34)
[2020-07-06] MEDS: Acetaminophen 325 MG TAB PO PRN (15:37)
[2020-07-06] MEDS: Azithromycin 500 MG in Sodium Chloride 0.9% 250 ML 250 ML IVPB SCH (16:51)
[2020-07-06] MEDS: Tramadol Hcl [Tramadol Hcl Er] 200 MG Tab.Er.24h PO SCH (20:47)
[2020-07-06] MEDS: Insulin Glargine 10 UNITS in Pre-Filled Syringe 1 EACH SC SCH (20:55)
[2020-07-06] MEDS ORDERED: Albuterol Sulfate 2.5 mg/3 ml Neb NEB PRN (21:13)
[2020-07-06] MEDS ORDERED: Albuterol 200 PUFF (6.7GM INHALER) INH PRN (21:17)
[2020-07-07] MEDS: Benzonatate 100 MG CAP PO PRN (00:14)
[2020-07-07 02:46] LABS: #Lymphocytes 1.2 thou/uL (1.20-3.40); #Monocytes 0.3 thou/uL (0.11-0.59); #Neutrophils 8.9 thou/uL (1.40-6.50); %Basophils 0.4 % (0.0-1.0); %Eosinophils 0.3 % (0.0-10.0); %Lymphocytes 11.2 % (21.0-51.0); %Monocytes 3.1 % (0.0-10.0); Hemoglobin 14.1 g/dL (14.0-18.0); Mean Corpuscular HGB CONC 34.1 g/dL (32.0-36.0); Mean Corpuscular Hemoglobin 29.1 pg (27.0-31.0); Mean Corpuscular Volume 85.3 fL (78.0-98.0); Mean Platelet Volume 7.7 fL (7.4-10.4); Platelet Count 359 thou/uL (130-400); RBC Distribution Width 12.5 % (11.5-14.5); Red Blood Cell (RBC) Count 4.85 mill/uL (4.70-6.10); White Blood Cell (WBC) Count 10.5 thou/uL (4.8-10.8)
[2020-07-07 03:13] LABS: Anion Gap 14 mmol/L (10-20); BUN (Urea Nitrogen) 19 mg/dL (8.4-25.7); Calc. Creatinine Clearance 227 mL/min (70-130); Calcium 8.2 mg/dL (7.8-10.44); Carbon Dioxide 21 mmol/L (22-29); Chloride 99 mmol/L (98-107); Glucose 267 mg/dL (70-105); Potassium 4.5 mmol/L (3.5-5.1); Sodium 129 mmol/L (136-145)
[2020-07-07] MEDS: HumaLOG 300 UNITS/3 ML VIAL SC PRN ×4 (05:50→21:15)
[2020-07-07] MEDS: Enoxaparin Sodium 40 MG/0.4 ML SYRINGE SC SCH ×2 (08:17→21:11)
[2020-07-07] MEDS: Pregabalin 50 MG CAP PO SCH ×2 (08:17→21:08)
[2020-07-07] MEDS: Ascorbic Acid 500 mg Chewable Tablet PO SCH (08:18)
[2020-07-07] MEDS: Amlodipine 10 MG TAB PO SCH (08:18)
[2020-07-07] MEDS: Zinc Sulfate 220 MG CAP PO SCH (08:18)
[2020-07-07] MEDS: Lisinopril 5 MG TAB PO SCH (08:18)
[2020-07-07] MEDS: Dexamethasone 4 mg/ml Vial SLOW IVP SCH (15:48)
[2020-07-07] MEDS: cefTRIAXone\\ROCEPHIN 1 GM in Sodium Chloride 0.9% 100 ML IVPB SCH (15:49)
[2020-07-07] MEDS: Azithromycin 500 MG in Sodium Chloride 0.9% 250 ML 250 ML IVPB SCH (15:49)
[2020-07-07] MEDS: Acetaminophen 325 MG TAB PO PRN (16:49)
--- NOTE | 2020-07-07 17:42 | PDOC.HOSPP ---
- Subjective Encounter Date: 07/07/20 Encounter Time: 08:30 Subjective: Patient seen for follow-up for acute hypoxic respiratory failure from COVID-19 pneumonia. Sleepy but arousable, no complaints today. - Objective Vital Signs & Weight: Vital Signs (12 hours) Temp Pulse Resp BP Pulse Ox 07/07/20 15:20 100.8 F H 78 14 127/63 96 07/07/20 10:48 97.0 F L 75 26 H 119/72 98 07/07/20 09:21 98 07/07/20 08:15 98 07/07/20 07:42 98.8 F 60 24 H 128/77 98 Weight Weight 300 lb 11.2 oz I&O: 07/06/20 07/07/20 07/08/20 06:59 06:59 06:59 Intake Total 720 1750 Output Total 1800 3350 925 Balance -1080 -1600 -925 Result Diagrams: 07/07/20 02:33 07/07/20 02:33 Additional Labs: Accuchecks 07/07/20 07/07/20 07/06/20 10:28 05:17 20:11 POC Glucose 297 H 217 H 298 H I reviewed patient's labs and MAR EKG Reviewed by me: Yes (Normal sinus rhythm on telemetry) Hospitalist ROS - Review of Systems Cardiovascular: denies: chest pain, palpitations, orthopnea, paroxysmal noc. dyspnea, edema, light headedness Genitourinary: denies: dysuria, frequency, incontinence, hematuria, retention - Medication Medications: Active Medications Generic Name Dose Route Start Last Admin Trade Name Freq PRN Reason Stop Dose Admin Acetaminophen 650 mg 07/03/20 17:06 07/07/20 16:49 Acetaminophen 325 Mg Tab PO 650 mg Q4H PRN Administration Headache/Fever/Mild Pain (1-3) Amlodipine Besylate 10 mg 07/05/20 09:00 07/07/20 08:18 Amlodipine 10 Mg Tab PO 10 mg DAILY [facility] Administration Ascorbic Acid 1,000 mg 07/04/20 09:00 07/07/20 08:18 Ascorbic Acid 500 Mg Chewable Tablet PO 1,000 mg DAILY [facility] Administration Benzonatate 100 mg 07/06/20 21:32 07/07/20 00:14 Benzonatate 100 Mg Cap PO 100 mg TIDPRN PRN Administration Cough Dexamethasone 6 mg 07/04/20 15:00 07/07/20 15:48 Dexamethasone 4 Mg/Ml Vial SLOW IVP 6 mg 1500 [facility] Administration Enoxaparin Sodium 40 mg 07/03/20 21:00 07/07/20 08:17 Enoxaparin Sodium 40 Mg/0.4 Ml Syringe SC 40 mg Q12HR [facility] Administration Ceftriaxone Sodium 1 gm/ 100 mls @ 200 mls/hr 07/04/20 15:00 07/07/20 15:49 Sodium Chloride IVPB 100 mls Q24HR [facility] Administration Azithromycin 500 mg/ Sodium 250 mls @ 250 mls/hr 07/04/20 15:30 07/07/20 15:4 9 Chloride IVPB 250 mls Q24HR [facility] Administration Insulin Glargine 10 units/ 0.1 mls @ 0 mls/hr 07/04/20 21:00 07/06/20 20:55 Miscellaneous Medication SC 0.1 mls HS [facility] Administration Insulin Human Lispro 0 units 07/03/20 23:45 07/06/20 20:56 Humalog 300 Units/3 Ml Vial SC 3 unit .BEDTIME SLIDING SC PRN Administration Bedtime Correctional Scale Insulin Human Lispro 0 units 07/03/20 23:45 07/07/20 16:41 Humalog 300 Units/3 Ml Vial SC 4 unit .MODERATE SLIDING SC PRN Administration Moderate Correctional Scale Lisinopril 5 mg 07/05/20 09:00 07/07/20 08:18 Lisinopril 5 Mg Tab PO 5 mg DAILY [facility] Administration Tramadol Hcl [ 0 each 07/04/20 21:00 07/06/20 20:47 Tramadol Hcl Er] 200 PO 1 each Mg Tab.Er.24h 2100 D[facility]LL Administration Pregabalin 100 mg 07/04/20 21:00 07/07/20 08:17 Pregabalin 50 Mg Cap PO 100 mg BID D[facility]RELL Administration Sodium Chloride 10 ml 07/03/20 21:00 07/07/20 08:18 Flush - Normal Saline 10 Ml Syringe IVF 10 ml Q12HR [facility] Administration Sodium Chloride 10 ml 07/03/20 18:45 07/07/20 15:49 Flush - Normal Saline 10 Ml Syringe IVF 10 ml PRN PRN Administration Saline Flush Zinc Sulfate 220 mg 07/04/20 09:00 07/07/20 08:18 Zinc Sulfate 220 Mg Cap PO 220 mg DAILY D[facility]RE[facility] Administration - Exam General - other findings: Morbid obesity ENT: normocephalic atraumatic Neck: symmetric, no thyromegaly Heart: RRR Respiratory: CTAB Gastrointestinal: soft, non-tender Skin: no rashes Psychiatric: normal affect, normal behavior Hosp A/P (1) Acute respiratory failure with hypoxia Code(s): J96.01 - ACUTE RESPIRATORY FAILURE WITH HYPOXIA Status: Acute (2) Pneumonia due to COVID-19 virus Code(s): U07.1 - COVID-19; J12.82 - PNEUMONIA DUE TO CORONAVIRUS DISEASE 2019 Status: Acute (3) NSVT (nonsustained ventricular tachycardia) Code(s): I47.2 - VENTRICULAR TACHYCARDIA Status: Acute (4) Sepsis Code(s): A41.9 - SEPSIS, UNSPECIFIED ORGANISM Status: Acute (5) Diabetes mellitus type 2 in obese Code(s): E11.69 - TYPE 2 DIABETES MELLITUS WITH OTHER SPECIFIED COMPLICATION; E66.9 - OBESITY, UNSPECIFIED Status: Chronic (6) Hypertension Code(s): I10 - ESSENTIAL (PRIMARY) HYPERTENSION Status: Chronic - Plan - Plan Patient is still on high flow oxygen. Supportive management. Continue dexamethasone, vitamin C and zinc. Patient is on ceftriaxone and azithromycin. Monitor vital signs and titrate antihypertensives as needed. Consult cardiology regarding ventricular tachycardia.
[2020-07-07] MEDS: Tramadol Hcl [Tramadol Hcl Er] 200 MG Tab.Er.24h PO SCH (21:11)
[2020-07-07] MEDS: Insulin Glargine 10 UNITS in Pre-Filled Syringe 1 EACH SC SCH (21:12)
[2020-07-08 05:56] LABS: #Lymphocytes 1.4 thou/uL (1.20-3.40); #Monocytes 0.4 thou/uL (0.11-0.59); #Neutrophils 9.2 thou/uL (1.40-6.50); %Basophils 0.2 % (0.0-1.0); %Eosinophils 0.3 % (0.0-10.0); %Lymphocytes 12.7 % (21.0-51.0); %Monocytes 3.7 % (0.0-10.0); %Neutrophils 83.1 % (42.0-75.0); Hemoglobin 13.6 g/dL (14.0-18.0); Mean Corpuscular HGB CONC 33.6 g/dL (32.0-36.0); Mean Corpuscular Hemoglobin 28.7 pg (27.0-31.0); Mean Corpuscular Volume 85.6 fL (78.0-98.0); Mean Platelet Volume 7.8 fL (7.4-10.4); Platelet Count 351 thou/uL (130-400); RBC Distribution Width 12.7 % (11.5-14.5); Red Blood Cell (RBC) Count 4.74 mill/uL (4.70-6.10); White Blood Cell (WBC) Count 11.1 thou/uL (4.8-10.8)
[2020-07-08 06:06] LABS: Anion Gap 14 mmol/L (10-20); BUN (Urea Nitrogen) 16 mg/dL (8.4-25.7); Calc. Creatinine Clearance 223 mL/min (70-130); Calcium 8.1 mg/dL (7.8-10.44); Carbon Dioxide 22 mmol/L (22-29); Chloride 97 mmol/L (98-107); Glucose 292 mg/dL (70-105); Potassium 4.4 mmol/L (3.5-5.1); Sodium 129 mmol/L (136-145)
[2020-07-08] MEDS: HumaLOG 300 UNITS/3 ML VIAL SC PRN ×4 (06:16→20:31)
[2020-07-08] MEDS: Ascorbic Acid 500 mg Chewable Tablet PO SCH (07:46)
[2020-07-08] MEDS: Lisinopril 5 MG TAB PO SCH (07:46)
[2020-07-08] MEDS: Enoxaparin Sodium 40 MG/0.4 ML SYRINGE SC SCH ×2 (07:47→20:30)
[2020-07-08] MEDS: Amlodipine 10 MG TAB PO SCH (07:47)
[2020-07-08] MEDS: Zinc Sulfate 220 MG CAP PO SCH (07:47)
[2020-07-08] MEDS: Pregabalin 50 MG CAP PO SCH ×2 (07:47→20:29)
--- NOTE | 2020-07-08 07:47 | CON ---
DATE OF CONSULTATION: 07/07/2020 REASON FOR CONSULTATION: Nonsustained VT. HISTORY OF PRESENT ILLNESS: Mr. Marinelli is a 54-year-old gentleman, who recently was diagnosed with COVID pneumonia. He is currently on high-flow oxygen. He was on telemetry monitoring and had a short brief run of nonsustained VT. The history is obtained from the chart. He is currently stable without any current symptoms from a cardiac standpoint. We have decided not to visit with Mr. Marinelli due to the patient being on high-flow oxygen. PAST MEDICAL HISTORY: Diabetes mellitus, hypertension, knee surgery, right arm surgery. SOCIAL HISTORY: alcohol use. No current tobacco or drug use. REVIEW OF SYSTEMS: Unobtainable. PHYSICAL EXAMINATION: VITAL SIGNS: Blood pressure 136/56, pulse 98, and respirations 20. Physical exam deferred due to COVID positive. IMPRESSION: Nonsustained ventricular tachycardia. RECOMMENDATIONS: This may be due to complications from COVID pneumonia. The patient does have diabetes mellitus as well as hypertension. We would recommend adding low-dose beta-prachi therapy. We will add a low-dose Toprol. We will also get a BNP. We discussed the case in detail with Dr. Barillas. It appears Mr. Marinelli will be here for a prolonged period. We will continue to monitor closely. Once he is felt to be noninfectious, may recommend an echo with Doppler, but at this point we will not change current status. Job ID: [id number]
--- NOTE | 2020-07-08 11:14 | PDOC.CPN ---
- Subjective Date: 07/08/20 Time: 09:00 Interval history: Tele reviewed. No further VT. - Objective Allergies/Adverse Reactions: Allergies Allergy/AdvReac Type Severity Reaction Status Date / Time Sulfa (Sulfonamide Allergy Anaphylaxis Verified 07/03/20 19:56 Antibiotics) Visit Medications: Current Medications Acetaminophen (Acetaminophen 325 Mg Tab) 650 mg PO Q4H PRN PRN Reason: Headache/Fever/Mild Pain (1-3) Last Admin: 07/07/20 16:49 Dose: 650 mg Documented by: Albuterol Sulfate (Albuterol 200 Puff (6.7gm Inhaler)) 2 puff INH [id number] PRN PRN Reason: Wheezing Amlodipine Besylate (Amlodipine 10 Mg Tab) 10 mg PO DAILY [facility] Last Admin: 07/08/20 07:47 Dose: 10 mg Documented by: Ascorbic Acid (Ascorbic Acid 500 Mg Chewable Tablet) 1,000 mg PO DAILY [facility] Last Admin: 07/08/20 07:46 Dose: 1,000 mg Documented by: Benzonatate (Benzonatate 100 Mg Cap) 100 mg PO TIDPRN PRN PRN Reason: Cough Last Admin: 07/07/20 00:14 Dose: 100 mg Documented by: Bisacodyl (Bisacodyl 5 Mg Tab) 10 mg PO DAILYPRN PRN PRN Reason: Constipation Dexamethasone (Dexamethasone 4 Mg/Ml Vial) 6 mg SLOW IVP 1500 [facility] Last Admin: 07/07/20 15:48 Dose: 6 mg Documented by: Dextrose/Water (Dextrose 50% Abboject 50 Ml Syringe) 25 gm SLOW IVP PRN PRN PRN Reason: Hypoglycemia Enoxaparin Sodium (Enoxaparin Sodium 40 Mg/0.4 Ml Syringe) 40 mg SC Q12HR [facility] Last Admin: 07/08/20 07:47 Dose: 40 mg Documented by: Glucagon (Glucagon 1 Mg/Ml Vial) 1 mg IM PRN PRN PRN Reason: Hypoglycemia Dextrose/Water (D5w) 1,000 mls @ 0 mls/hr IV .Q0M PRN PRN Reason: Hypoglycemia Ceftriaxone Sodium 1 gm/ (Sodium Chloride) 100 mls @ 200 mls/hr IVPB Q24HR [facility] Last Admin: 07/07/20 15:49 Dose: 100 mls Documented by: Azithromycin 500 mg/ Sodium (Chloride) 250 mls @ 250 mls/hr IVPB Q24HR [facility] Last Admin: 07/07/20 15:49 Dose: 250 mls Documented by: Insulin Glargine 10 units/ (Miscellaneous Medication) 0.1 mls @ 0 mls/hr SC HS [facility] Last Admin: 07/07/20 21:12 Dose: 0.1 mls Documented by: Insulin Human Lispro (Humalog 300 Units/3 Ml Vial) 0 units SC .BEDTIME SLIDING SC PRN PRN Reason: Bedtime Correctional Scale Last Admin: 07/07/20 21:15 Dose: 4 unit Documented by: Insulin Human Lispro (Humalog 300 Units/3 Ml Vial) 0 units SC .MODERATE SLIDING SC PRN PRN Reason: Moderate Correctional Scale Last Admin: 07/08/20 06:16 Dose: 4 unit Documented by: Lisinopril (Lisinopril 5 Mg Tab) 5 mg PO DAILY [facility] Last Admin: 07/08/20 07:46 Dose: 5 mg Documented by: Metoprolol Succinate (Metoprolol Succinate Xl 25 Mg Tab) 25 mg PO DAILY [facility] Last Admin: 07/08/20 07:46 Dose: 25 mg Documented by: Tramadol Hcl [ Tramadol Hcl Er] 200 Mg Tab.Er.24h 0 each PO 2100 [facility] Last Admin: 07/07/20 21:11 Dose: 1 each Documented by: Pregabalin (Pregabalin 50 Mg Cap) 100 mg PO BID [facility] Last Admin: 07/08/20 07:47 Dose: 100 mg Documented by: Sodium Chloride (Flush - Normal Saline 10 Ml Syringe) 10 ml IVF Q12HR [facility] Last Admin: 07/08/20 07:48 Dose: 10 ml Documented by: Sodium Chloride (Flush - Normal Saline 10 Ml Syringe) 10 ml IVF PRN PRN PRN Reason: Saline Flush Last Admin: 07/07/20 15:49 Dose: 10 ml Documented by: Zinc Sulfate (Zinc Sulfate 220 Mg Cap) 220 mg PO DAILY [facility] Last Admin: 07/08/20 07:47 Dose: 220 mg Documented by: Vital Signs & Weight: Vital Signs Temp Pulse Resp BP Pulse Ox 07/08/20 10:32 98.8 F 70 18 105/55 L 98 07/08/20 08:41 98 07/08/20 08:00 97.7 F 78 20 130/77 93 L 07/08/20 03:10 98.1 F 71 18 99/60 98 Weight 301 lb 11.2 oz - Labs Result Diagrams: 07/08/20 05:03 07/08/20 05:03 Troponin/CKMB Troponin I Less than 0.010 ng/mL (< 0.028) 07/03/20 14:41 - Assessment/Plan Assessment/Plan: 1. NSVT Continue conservative care for now. Rhythm stable.
[2020-07-08] MEDS: cefTRIAXone\\ROCEPHIN 1 GM in Sodium Chloride 0.9% 100 ML IVPB SCH (15:22)
[2020-07-08] MEDS: Dexamethasone 4 mg/ml Vial SLOW IVP SCH (15:24)
[2020-07-08] MEDS: Azithromycin 500 MG in Sodium Chloride 0.9% 250 ML 250 ML IVPB SCH (17:22)
[2020-07-08] MEDS: Insulin Glargine 10 UNITS in Pre-Filled Syringe 1 EACH SC SCH (20:30)
[2020-07-08] MEDS: Tramadol Hcl [Tramadol Hcl Er] 200 MG Tab.Er.24h PO SCH (22:05)
[2020-07-08] MEDS: Acetaminophen 325 MG TAB PO PRN (22:06)
[2020-07-08] MEDS: Benzonatate 100 MG CAP PO PRN (22:06)
[2020-07-09] MEDS: HumaLOG 300 UNITS/3 ML VIAL SC PRN ×4 (06:14→21:23)
[2020-07-09] MEDS: Ascorbic Acid 500 mg Chewable Tablet PO SCH (08:32)
[2020-07-09] MEDS: Amlodipine 10 MG TAB PO SCH (08:33)
[2020-07-09] MEDS: Pregabalin 50 MG CAP PO SCH ×2 (08:33→21:22)
[2020-07-09] MEDS: Zinc Sulfate 220 MG CAP PO SCH (08:33)
[2020-07-09] MEDS: Enoxaparin Sodium 40 MG/0.4 ML SYRINGE SC SCH ×2 (08:34→21:21)
[2020-07-09] MEDS: Lisinopril 5 MG TAB PO SCH (08:34)
[2020-07-09] MEDS: Benzonatate 100 MG CAP PO PRN ×2 (10:10→17:31)
--- NOTE | 2020-07-09 16:17 | PDOC.HOSPP ---
- Subjective Encounter Date: 07/08/20 Encounter Time: 16:00 Subjective: Patient seen for follow-up for acute respiratory failure. Denies any new complaints. - Objective Vital Signs & Weight: Vital Signs (12 hours) Temp Pulse Resp BP Pulse Ox 07/09/20 15:30 98.7 F 66 20 116/66 99 07/09/20 11:28 98.4 F 66 20 111/69 98 07/09/20 08:00 97.6 F 64 24 H 110/61 95 07/09/20 06:16 96 Weight Weight 301 lb 11.2 oz I&O: 07/08/20 07/09/20 07/10/20 06:59 06:59 06:59 Intake Total 1221.5 3230 Output Total 3195 4150 Balance -1973.5 -920 Result Diagrams: 07/08/20 05:03 07/08/20 05:03 Additional Labs: Accuchecks 07/09/20 07/09/20 07/09/20 15:29 11:27 05:33 POC Glucose 186 H 222 H 232 H 07/08/20 07/08/20 20:16 16:44 POC Glucose 370 H 197 H Labs and MAR reviewed by [place] Hospitalist ROS - Review of Systems Cardiovascular: denies: chest pain, palpitations, orthopnea, paroxysmal noc. dyspnea, edema, light headedness Gastrointestinal: denies: nausea, vomiting, abdominal pain, diarrhea, constipation, melena, hematochezia - Medication Medications: Active Medications Generic Name Dose Route Start Last Admin Trade Name Freq PRN Reason Stop Dose Admin Acetaminophen 650 mg 07/03/20 17:06 07/08/20 22:06 Acetaminophen 325 Mg Tab PO 650 mg Q4H PRN Administration Headache/Fever/Mild Pain (1-3) Amlodipine Besylate 10 mg 07/05/20 09:00 07/09/20 08:33 Amlodipine 10 Mg Tab PO 10 mg DAILY [facility] Administration Ascorbic Acid 1,000 mg 07/04/20 09:00 07/09/20 08:32 Ascorbic Acid 500 Mg Chewable Tablet PO 1,000 mg DAILY [facility] Administration Benzonatate 100 mg 07/06/20 21:32 07/09/20 10:10 Benzonatate 100 Mg Cap PO 100 mg TIDPRN PRN Administration Cough Dexamethasone 6 mg 07/04/20 15:00 07/08/20 15:24 Dexamethasone 4 Mg/Ml Vial SLOW IVP 6 mg 1500 [facility] Administration Enoxaparin Sodium 40 mg 07/03/20 21:00 07/09/20 08:34 Enoxaparin Sodium 40 Mg/0.4 Ml Syringe SC 40 mg Q12HR [facility] Administration Ceftriaxone Sodium 1 gm/ 100 mls @ 200 mls/hr 07/04/20 15:00 07/08/20 15:22 Sodium Chloride IVPB 100 mls Q24HR [facility] Administration Insulin Glargine 10 units/ 0.1 mls @ 0 mls/hr 07/04/20 21:00 07/08/20 20:30 Miscellaneous Medication SC 0.1 mls HS [facility] Administration Insulin Human Lispro 0 units 07/03/20 23:45 07/08/20 20:31 Humalog 300 Units/3 Ml Vial SC 5 unit .BEDTIME SLIDING SC PRN Administration Bedtime Correctional Scale Insulin Human Lispro 0 units 07/03/20 23:45 07/09/20 12:51 Humalog 300 Units/3 Ml Vial SC 4 unit .MODERATE SLIDING SC PRN Administration Moderate Correctional Scale Lisinopril 5 mg 07/05/20 09:00 07/09/20 08:34 Lisinopril 5 Mg Tab PO 5 mg DAILY [facility] Administration Metoprolol Succinate 25 mg 07/08/20 09:00 07/09/20 08:33 Metoprolol Succinate Xl 25 Mg Tab PO 25 mg DAILY [facility] Administration Tramadol Hcl [ 0 each 07/04/20 21:00 07/08/20 22:05 Tramadol Hcl Er] 200 PO 1 each Mg Tab.Er.24h 2100 [facility] Administration Pregabalin 100 mg 07/04/20 21:00 07/09/20 08:33 Pregabalin 50 Mg Cap PO 100 mg BID [facility] Administration Sodium Chloride 10 ml 07/03/20 21:00 07/09/20 08:35 Flush - Normal Saline 10 Ml Syringe IVF 10 ml Q12HR [facility] Administration Sodium Chloride 10 ml 07/03/20 18:45 07/07/20 15:49 Flush - Normal Saline 10 Ml Syringe IVF 10 ml PRN PRN Administration Saline Flush Zinc Sulfate 220 mg 07/04/20 09:00 07/09/20 08:33 Zinc Sulfate 220 Mg Cap PO 220 mg DAILY [facility] Administration - Exam General Appearance: awake alert Neck: supple Heart: RRR Respiratory: rhonchi Gastrointestinal: soft Skin: no rashes Psychiatric: normal affect Hosp A/P (1) Acute respiratory failure with hypoxia Code(s): J96.01 - ACUTE RESPIRATORY FAILURE WITH HYPOXIA Status: Acute (2) Pneumonia due to COVID-19 virus Code(s): U07.1 - COVID-19; J12.82 - PNEUMONIA DUE TO CORONAVIRUS DISEASE 2018 Status: Acute (3) NSVT (nonsustained ventricular tachycardia) Code(s): I47.2 - VENTRICULAR TACHYCARDIA Status: Acute (4) Sepsis Code(s): A41.9 - SEPSIS, UNSPECIFIED ORGANISM Status: Acute (5) Diabetes mellitus type 2 in obese Code(s): E11.69 - TYPE 2 DIABETES MELLITUS WITH OTHER SPECIFIED COMPLICATION; E66.9 - OBESITY, UNSPECIFIED Status: Chronic (6) Hypertension Code(s): I10 - ESSENTIAL (PRIMARY) HYPERTENSION Status: Chronic - Plan - Plan Continue on high flow oxygen. Supportive management. Patient is on dexamethasone, vitamin C and zinc. Continue ceftriaxone and azithromycin. Monitor vital signs and titrate antihypertensives as needed. Appreciate cardiology service input regarding V. tach
--- NOTE | 2020-07-09 16:19 | PDOC.HOSPP ---
- Subjective Encounter Date: 07/09/20 Encounter Time: 08:00 Subjective: Patient seen for follow-up regarding hypoxic respiratory failure. Reports that he did not sleep well. - Objective Vital Signs & Weight: Vital Signs (12 hours) Temp Pulse Resp BP Pulse Ox 07/09/20 15:30 98.7 F 66 20 116/66 99 07/09/20 11:28 98.4 F 66 20 111/69 98 07/09/20 08:00 97.6 F 64 24 H 110/61 95 07/09/20 06:16 96 Weight Weight 301 lb 11.2 oz I&O: 07/08/20 07/09/20 07/10/20 06:59 06:59 06:59 Intake Total 1221.5 3230 Output Total 3195 4150 Balance -1973.5 -920 Result Diagrams: 07/08/20 05:03 07/08/20 05:03 Additional Labs: Accuchecks 07/09/20 07/09/20 07/09/20 15:29 11:27 05:33 POC Glucose 186 H 222 H 232 H 07/08/20 07/08/20 20:16 16:44 POC Glucose 370 H 197 H I reviewed patient's labs and MAR EKG Reviewed by me: Yes (Normal sinus rhythm on telemetry) Hospitalist ROS - Review of Systems Respiratory: reports: cough, dry, SOB with excertion. denies: shortness of breath, hemoptysis, pleuritic pain, sputum, wheezing Genitourinary: denies: dysuria, frequency, incontinence, hematuria, retention - Medication Medications: Active Medications Generic Name Dose Route Start Last Admin Trade Name Ellen PRN Reason Stop Dose Admin Acetaminophen 650 mg 07/03/20 17:06 07/08/20 22:06 Acetaminophen 325 Mg Tab PO 650 mg Q4H PRN Administration Headache/Fever/Mild Pain (1-3) Amlodipine Besylate 10 mg 07/05/20 09:00 07/09/20 08:33 Amlodipine 10 Mg Tab PO 10 mg DAILY [facility] Administration Ascorbic Acid 1,000 mg 07/04/20 09:00 07/09/20 08:32 Ascorbic Acid 500 Mg Chewable Tablet PO 1,000 mg DAILY [facility] Administration Benzonatate 100 mg 07/06/20 21:32 07/09/20 10:10 Benzonatate 100 Mg Cap PO 100 mg TIDPRN PRN Administration Cough Dexamethasone 6 mg 07/04/20 15:00 07/08/20 15:24 Dexamethasone 4 Mg/Ml Vial SLOW IVP 6 mg 1500 [facility] Administration Enoxaparin Sodium 40 mg 07/03/20 21:00 07/09/20 08:34 Enoxaparin Sodium 40 Mg/0.4 Ml Syringe SC 40 mg Q12HR [facility] Administration Ceftriaxone Sodium 1 gm/ 100 mls @ 200 mls/hr 07/04/20 15:00 07/08/20 15:22 Sodium Chloride IVPB 100 mls Q24HR [facility] Administration Insulin Glargine 10 units/ 0.1 mls @ 0 mls/hr 07/04/20 21:00 07/08/20 20:30 Miscellaneous Medication SC 0.1 mls HS [facility] Administration Insulin Human Lispro 0 units 07/03/20 23:45 07/08/20 20:31 Humalog 300 Units/3 Ml Vial SC 5 unit .BEDTIME SLIDING SC PRN Administration Bedtime Correctional Scale Insulin Human Lispro 0 units 07/03/20 23:45 07/09/20 12:51 Humalog 300 Units/3 Ml Vial SC 4 unit .MODERATE SLIDING SC PRN Administration Moderate Correctional Scale Lisinopril 5 mg 07/05/20 09:00 07/09/20 08:34 Lisinopril 5 Mg Tab PO 5 mg DAILY [facility] Administration Metoprolol Succinate 25 mg 07/08/20 09:00 07/09/20 08:33 Metoprolol Succinate Xl 25 Mg Tab PO 25 mg DAILY [facility] Administration Tramadol Hcl [ 0 each 07/04/20 21:00 07/08/20 22:05 Tramadol Hcl Er] 200 PO 1 each Mg Tab.Er.24h 2100 [facility] Administration Pregabalin 100 mg 07/04/20 21:00 07/09/20 08:33 Pregabalin 50 Mg Cap PO 100 mg BID [facility] Administration Sodium Chloride 10 ml 07/03/20 21:00 07/09/20 08:35 Flush - Normal Saline 10 Ml Syringe IVF 10 ml Q12HR [facility] Administration Sodium Chloride 10 ml 07/03/20 18:45 07/07/20 15:49 Flush - Normal Saline 10 Ml Syringe IVF 10 ml PRN PRN Administration Saline Flush Zinc Sulfate 220 mg 07/04/20 09:00 07/09/20 08:33 Zinc Sulfate 220 Mg Cap PO 220 mg DAILY [facility] Administration - Exam General Appearance: awake alert General - other findings: Morbid obesity ENT: normocephalic atraumatic Neck: supple Heart: RRR Respiratory: CTAB Gastrointestinal: soft, non-tender Skin: no rashes Psychiatric: normal affect, normal behavior Hosp A/P (1) Acute respiratory failure with hypoxia Code(s): J96.01 - ACUTE RESPIRATORY FAILURE WITH HYPOXIA Status: Acute (2) Pneumonia due to COVID-19 virus Code(s): U07.1 - COVID-19; J12.82 - PNEUMONIA DUE TO CORONAVIRUS DISEASE 2018 Status: Acute (3) NSVT (nonsustained ventricular tachycardia) Code(s): I47.2 - VENTRICULAR TACHYCARDIA Status: Acute (4) Sepsis Code(s): A41.9 - SEPSIS, UNSPECIFIED ORGANISM Status: Acute (5) Diabetes mellitus type 2 in obese Code(s): E11.69 - TYPE 2 DIABETES MELLITUS WITH OTHER SPECIFIED COMPLICATION; E66.9 - OBESITY, UNSPECIFIED Status: Chronic (6) Hypertension Code(s): I10 - ESSENTIAL (PRIMARY) HYPERTENSION Status: Chronic - Plan - Plan Patient is on on high flow oxygen. Oxygen requirements have improved. Supportive management. Continue dexamethasone, vitamin C and zinc. Patient is on ceftriaxone and azithromycin. Monitor vital signs and titrate antihypertensives as needed.
[2020-07-09] MEDS: cefTRIAXone\\ROCEPHIN 1 GM in Sodium Chloride 0.9% 100 ML IVPB SCH (16:39)
[2020-07-09] MEDS: Dexamethasone 4 mg/ml Vial SLOW IVP SCH (16:40)
[2020-07-09] MEDS: Tramadol Hcl [Tramadol Hcl Er] 200 MG Tab.Er.24h PO SCH (21:21)
[2020-07-09] MEDS: Insulin Glargine 10 UNITS in Pre-Filled Syringe 1 EACH SC SCH (21:21)
[2020-07-10] MEDS: HumaLOG 300 UNITS/3 ML VIAL SC PRN ×4 (05:57→20:10)
[2020-07-10] MEDS: Ascorbic Acid 500 mg Chewable Tablet PO SCH (08:33)
[2020-07-10] MEDS: Pregabalin 50 MG CAP PO SCH ×2 (08:33→20:09)
[2020-07-10] MEDS: Amlodipine 10 MG TAB PO SCH (08:33)
[2020-07-10] MEDS: Lisinopril 5 MG TAB PO SCH (08:33)
[2020-07-10] MEDS: Enoxaparin Sodium 40 MG/0.4 ML SYRINGE SC SCH ×2 (08:33→20:10)
[2020-07-10] MEDS: Zinc Sulfate 220 MG CAP PO SCH (08:34)
[2020-07-10] MEDS: Dexamethasone 4 mg/ml Vial SLOW IVP SCH (15:11)
[2020-07-10] MEDS: cefTRIAXone\\ROCEPHIN 1 GM in Sodium Chloride 0.9% 100 ML IVPB SCH (15:11)
--- NOTE | 2020-07-10 19:19 | PDOC.HOSPP ---
- Subjective Encounter Date: 07/10/20 Encounter Time: 08:00 Subjective: Patient seen in follow-up for hypoxic respiratory failure. Reports feeling slightly better. - Objective Vital Signs & Weight: Vital Signs (12 hours) Temp Pulse Resp BP Pulse Ox 07/10/20 16:20 98.4 F 71 24 H 114/68 100 07/10/20 11:25 98.6 F 66 22 H 110/64 100 07/10/20 10:56 100 07/10/20 08:05 98.4 F 60 22 H 109/78 100 Weight Weight 301 lb 11.2 oz I&O: 07/09/20 07/10/20 07/11/20 06:59 06:59 06:59 Intake Total 3230 2300 700 Output Total 4150 2950 1200 Balance -920 -650 -500 Result Diagrams: 07/08/20 05:03 07/08/20 05:03 Additional Labs: Accuchecks 07/10/20 07/10/20 07/10/20 16:20 11:23 05:30 POC Glucose 236 H 247 H 271 H 07/09/20 20:17 POC Glucose 354 H Labs and MAR reviewed by me EKG Reviewed by me: Yes (Telemetry shows normal sinus rhythm) Hospitalist ROS - Review of Systems Constitutional: denies: fever, chills, sweats, weakness, malaise Respiratory: reports: cough, dry. denies: shortness of breath, hemoptysis, SOB with excertion, pleuritic pain, sputum, wheezing - Medication Medications: Active Medications Generic Name Dose Route Start Last Admin Trade Name Freq PRN Reason Stop Dose Admin Acetaminophen 650 mg 07/03/20 17:06 07/08/20 22:06 Acetaminophen 325 Mg Tab PO 650 mg Q4H PRN Administration Headache/Fever/Mild Pain (1-3) Amlodipine Besylate 10 mg 07/05/20 09:00 07/10/20 08:33 Amlodipine 10 Mg Tab PO 10 mg DAILY DARRELL Administration Ascorbic Acid 1,000 mg 07/04/20 09:00 07/10/20 08:33 Ascorbic Acid 500 Mg Chewable Tablet PO 1,000 mg DAILY DARRELL Administration Benzonatate 100 mg 07/06/20 21:32 07/09/20 17:31 Benzonatate 100 Mg Cap PO 100 mg TIDPRN PRN Administration Cough Dexamethasone 6 mg 07/04/20 15:00 07/10/20 15:11 Dexamethasone 4 Mg/Ml Vial SLOW IVP 6 mg 1500 DARRELL Administration Enoxaparin Sodium 40 mg 07/03/20 21:00 07/10/20 08:33 Enoxaparin Sodium 40 Mg/0.4 Ml Syringe SC 40 mg Q12HR DARRELL Administration Ceftriaxone Sodium 1 gm/ 100 mls @ 200 mls/hr 07/04/20 15:00 07/10/20 15:11 Sodium Chloride IVPB 100 mls Q24HR DARRELL Administration Insulin Glargine 10 units/ 0.1 mls @ 0 mls/hr 07/04/20 21:00 07/09/20 21:21 Miscellaneous Medication SC 0.1 mls HS DARRELL Administration Insulin Human Lispro 0 units 07/03/20 23:45 07/09/20 21:23 Humalog 300 Units/3 Ml Vial SC 5 unit .BEDTIME SLIDING SC PRN Administration Bedtime Correctional Scale Insulin Human Lispro 0 units 07/03/20 23:45 07/10/20 17:42 Humalog 300 Units/3 Ml Vial SC 4 unit .MODERATE SLIDING SC PRN Administration Moderate Correctional Scale Lisinopril 5 mg 07/05/20 09:00 07/10/20 08:33 Lisinopril 5 Mg Tab PO 5 mg DAILY DARRELL Administration Metoprolol Succinate 25 mg 07/08/20 09:00 07/10/20 08:33 Metoprolol Succinate Xl 25 Mg Tab PO 25 mg DAILY DARRELL Administration Tramadol Hcl [ 0 each 07/04/20 21:00 07/09/20 21:21 Tramadol Hcl Er] 200 PO 1 each Mg Tab.Er.24h 2100 DARRELL Administration Pregabalin 100 mg 07/04/20 21:00 07/10/20 08:33 Pregabalin 50 Mg Cap PO 100 mg BID DARRELL Administration Sodium Chloride 10 ml 07/03/20 21:00 07/10/20 08:34 Flush - Normal Saline 10 Ml Syringe IVF 10 ml Q12HR DARRELL Administration Sodium Chloride 10 ml 07/03/20 18:45 07/10/20 15:11 Flush - Normal Saline 10 Ml Syringe IVF 10 ml PRN PRN Administration Saline Flush Zinc Sulfate 220 mg 07/04/20 09:00 07/10/20 08:34 Zinc Sulfate 220 Mg Cap PO 220 mg DAILY DARRELL Administration - Exam General - other findings: Morbid obesity Eye: anicteric sclera ENT: moist mucosa Neck: supple Heart: RRR Respiratory: CTAB Gastrointestinal: soft Skin: no rashes Psychiatric: normal affect, normal behavior Hosp A/P (1) Acute respiratory failure with hypoxia Code(s): J96.01 - ACUTE RESPIRATORY FAILURE WITH HYPOXIA Status: Acute (2) Pneumonia due to COVID-19 virus Code(s): U07.1 - COVID-19; J12.82 - PNEUMONIA DUE TO CORONAVIRUS DISEASE 2019 Status: Acute (3) NSVT (nonsustained ventricular tachycardia) Code(s): I47.2 - VENTRICULAR TACHYCARDIA Status: Acute (4) Sepsis Code(s): A41.9 - SEPSIS, UNSPECIFIED ORGANISM Status: Acute (5) Diabetes mellitus type 2 in obese Code(s): E11.69 - TYPE 2 DIABETES MELLITUS WITH OTHER SPECIFIED COMPLICATION; E66.9 - OBESITY, UNSPECIFIED Status: Chronic (6) Hypertension Code(s): I10 - ESSENTIAL (PRIMARY) HYPERTENSION Status: Chronic - Plan Patient is a pleasant 54-year-old gentleman who was admitted to the hospital on July 03, 2020 for respiratory failure and COVID-19 pneumonia. He was admitted on high flow oxygen. He did not qualify for remdesivir. He received dexamethasone, vitamin C and zinc. He is also on ceftriaxone and azithromycin. He continues to be on high flow oxygen but oxygen requirements are improving. He was also seen by cardiology service for nonsustained ventricular tachycardia. Conservative management was recommended. - Plan Continue high flow oxygen. Oxygen requirements have improved. Supportive management. Patient is on dexamethasone, vitamin C and zinc. Continue ceftriaxone and azithromycin. Monitor vital signs and titrate antihypertensives as needed.
[2020-07-10] MEDS: Tramadol Hcl [Tramadol Hcl Er] 200 MG Tab.Er.24h PO SCH (20:11)
[2020-07-10] MEDS: Insulin Glargine 10 UNITS in Pre-Filled Syringe 1 EACH SC SCH (21:08)
[2020-07-11] MEDS: HumaLOG 300 UNITS/3 ML VIAL SC PRN ×3 (05:44→16:08)
[2020-07-11] MEDS: Lisinopril 5 MG TAB PO SCH (09:00)
[2020-07-11] MEDS: Enoxaparin Sodium 40 MG/0.4 ML SYRINGE SC SCH ×2 (09:27→20:37)
[2020-07-11] MEDS: Zinc Sulfate 220 MG CAP PO SCH (09:28)
[2020-07-11] MEDS: Ascorbic Acid 500 mg Chewable Tablet PO SCH (09:28)
[2020-07-11] MEDS: Pregabalin 50 MG CAP PO SCH ×2 (09:30→20:37)
[2020-07-11] MEDS: Amlodipine 10 MG TAB PO SCH (09:35)
[2020-07-11 11:16] LABS: Mean Corpuscular HGB CONC 34.1 g/dL (32.0-36.0); Mean Platelet Volume 7.4 fL (7.4-10.4); Platelet Count 402 thou/uL (130-400); RBC Distribution Width 12.6 % (11.5-14.5); Red Blood Cell (RBC) Count 4.82 mill/uL (4.70-6.10); White Blood Cell (WBC) Count 11.8 thou/uL (4.8-10.8)
[2020-07-11 11:35] LABS: Anion Gap 15 mmol/L (10-20); BUN (Urea Nitrogen) 17 mg/dL (8.4-25.7); Calc. Creatinine Clearance 202 mL/min (70-130); Calcium 8.6 mg/dL (7.8-10.44); Carbon Dioxide 23 mmol/L (22-29); Chloride 99 mmol/L (98-107); Glucose 214 mg/dL (70-105); Potassium 3.7 mmol/L (3.5-5.1); Sodium 133 mmol/L (136-145)
--- NOTE | 2020-07-11 14:01 | EKG ---
Test Reason : Blood Pressure : / mmHG Vent. Rate : 114 BPM Atrial Rate : 114 BPM P-R Int : 138 ms QRS Dur : 096 ms QT Int : 324 ms P-R-T Axes : 051 -15 036 degrees QTc Int : 446 ms Sinus tachycardia Inferior infarct , age undetermined Cannot rule out Anterior infarct , age undetermined Abnormal ECG Confirmed by ROSE PINTO DO ([id number]), fan mail editor STAR MOLINA ([id number]) on 07/11/2020 2:00:22 PM Referred By: Confirmed By:ROSE PINTO DO
--- NOTE | 2020-07-11 15:17 | PDOC.HOSPP ---
- Subjective Encounter Date: 07/11/20 Encounter Time: 15:13 Subjective: F/u: COVID Patient has been on high flow nasal cannula for his Covid since admission. He states that it is being weaned down. He does have intermittent cough. He has not been ambulating much - Objective Vital Signs & Weight: Vital Signs (12 hours) Temp Pulse Resp BP BP Pulse Ox 07/11/20 11:52 97.6 F 68 17 113/69 100 07/11/20 09:35 88 07/11/20 09:00 68 116/66 07/11/20 08:59 100 07/11/20 07:58 97.4 F L 58 L 16 116/66 07/11/20 03:30 97.9 F 71 22 H 125/79 100 Weight Weight 301 lb 11.2 oz I&O: 07/10/20 07/11/20 07/12/20 06:59 06:59 06:59 Intake Total 2300 1420 Output Total 2950 3250 Balance -650 -1830 Result Diagrams: 07/11/20 11:03 07/11/20 11:03 Additional Labs: Accuchecks 07/11/20 07/11/20 07/10/20 10:20 05:31 16:20 POC Glucose 195 H 305 H 236 H Hospitalist ROS - Review of Systems Constitutional: denies: fever, chills - Medication Medications: Active Medications Generic Name Dose Route Start Last Admin Trade Name Freq PRN Reason Stop Dose Admin Acetaminophen 650 mg 07/03/20 17:06 07/08/20 22:06 Acetaminophen 325 Mg Tab PO 650 mg Q4H PRN Administration Headache/Fever/Mild Pain (1-3) Amlodipine Besylate 10 mg 07/05/20 09:00 07/11/20 09:35 Amlodipine 10 Mg Tab PO 10 mg DAILY DARRELL Administration Ascorbic Acid 1,000 mg 07/04/20 09:00 07/11/20 09:28 Ascorbic Acid 500 Mg Chewable Tablet PO 1,000 mg DAILY DARRELL Administration Benzonatate 100 mg 07/06/20 21:32 07/09/20 17:31 Benzonatate 100 Mg Cap PO 100 mg TIDPRN PRN Administration Cough Dexamethasone 6 mg 07/04/20 15:00 07/10/20 15:11 Dexamethasone 4 Mg/Ml Vial SLOW IVP 6 mg 1500 DARRELL Administration Enoxaparin Sodium 40 mg 07/03/20 21:00 07/11/20 09:27 Enoxaparin Sodium 40 Mg/0.4 Ml Syringe SC 40 mg Q12HR DARRELL Administration Ceftriaxone Sodium 1 gm/ 100 mls @ 200 mls/hr 07/04/20 15:00 07/10/20 15:11 Sodium Chloride IVPB 100 mls Q24HR DARRELL Administration Insulin Glargine 10 units/ 0.1 mls @ 0 mls/hr 07/04/20 21:00 07/10/20 21:08 Miscellaneous Medication SC 0.1 mls HS DARRELL Administration Insulin Human Lispro 0 units 07/03/20 23:45 07/10/20 20:10 Humalog 300 Units/3 Ml Vial SC 4 unit .BEDTIME SLIDING SC PRN Administration Bedtime Correctional Scale Insulin Human Lispro 0 units 07/03/20 23:45 07/11/20 11:34 Humalog 300 Units/3 Ml Vial SC 2 unit .MODERATE SLIDING SC PRN Administration Moderate Correctional Scale Lisinopril 5 mg 07/05/20 09:00 07/11/20 09:00 Lisinopril 5 Mg Tab PO Not Given DAILY DARRELL Metoprolol Succinate 25 mg 07/08/20 09:00 07/11/20 09:30 Metoprolol Succinate Xl 25 Mg Tab PO 25 mg DAILY DARRELL Administration Tramadol Hcl [ 0 each 07/04/20 21:00 07/10/20 20:11 Tramadol Hcl Er] 200 PO 1 each Mg Tab.Er.24h 2100 DARRELL Administration Pregabalin 100 mg 07/04/20 21:00 07/11/20 09:30 Pregabalin 50 Mg Cap PO 100 mg BID DARRELL Administration Sodium Chloride 10 ml 07/03/20 21:00 07/11/20 10:04 Flush - Normal Saline 10 Ml Syringe IVF 10 ml Q12HR DARRELL Administration Sodium Chloride 10 ml 07/03/20 18:45 07/10/20 15:11 Flush - Normal Saline 10 Ml Syringe IVF 10 ml PRN PRN Administration Saline Flush Zinc Sulfate 220 mg 07/04/20 09:00 07/11/20 09:28 Zinc Sulfate 220 Mg Cap PO 220 mg DAILY DARRELL Administration - Exam General Appearance: NAD, awake alert General - other findings: Morbidly obese ENT: normocephalic atraumatic, no oropharyngeal lesions Neck: supple, no JVD Heart: RRR, no murmur, no gallops, no rubs Respiratory: CTAB, no wheezes, no rales, no ronchi Gastrointestinal: soft, non-tender, non-distended, normal bowel sounds Extremities: no cyanosis, no clubbing, no edema Skin: normal turgor, no lesions, no rashes Neurological: cranial nerve grossly intact, normal sensation to touch Musculoskeletal: normal tone, normal strength, no muscle wasting Hosp A/P - Plan CTA thorax: fatty liver. Multifocal patchy areas of ground glass opacity and enlarged LN in the mediastinum measuring up to 12 mm. #Acute hypoxic respiratory failure secondary to COVID pneumonia #Leukocytosis - WBC is up to 11.8 which is stable. Patient is completed 7 days of ceftria xone. Will discontinue -Patient is on high flow nasal cannula. Continue to wean to maintain sats g reater than 92% . Continue dexamethasone. Patient wants to go home upon discharge -We will order physical therapy #Hyponatremia - sodium 133 which is stable, will monitor #Hypertension -Blood pressure controlled. Continue lisinopril and amlodipine #Diabetes -Blood sugars 100-300. We will add Lantus 8 units subcu nightly
[2020-07-11] MEDS: Dexamethasone 4 mg/ml Vial SLOW IVP SCH (15:43)
[2020-07-11] MEDS: cefTRIAXone\\ROCEPHIN 1 GM in Sodium Chloride 0.9% 100 ML IVPB SCH (20:09)
[2020-07-11] MEDS: Tramadol Hcl [Tramadol Hcl Er] 200 MG Tab.Er.24h PO SCH (20:38)
[2020-07-11] MEDS ORDERED: Insulin Glargine 8 UNITS in Pre-Filled Syringe 1 EACH SC SCH (21:00)
[2020-07-11] MEDS: Insulin Glargine 10 UNITS in Pre-Filled Syringe 1 EACH SC SCH (22:15)
[2020-07-12] MEDS: HumaLOG 300 UNITS/3 ML VIAL SC PRN ×3 (06:24→17:12)
[2020-07-12] MEDS: Enoxaparin Sodium 40 MG/0.4 ML SYRINGE SC SCH ×2 (11:07→20:26)
[2020-07-12] MEDS: Pregabalin 50 MG CAP PO SCH ×2 (11:07→20:27)
[2020-07-12] MEDS: Ascorbic Acid 500 mg Chewable Tablet PO SCH (11:08)
[2020-07-12] MEDS: Zinc Sulfate 220 MG CAP PO SCH (11:08)
[2020-07-12] MEDS: Lisinopril 5 MG TAB PO SCH (11:09)
[2020-07-12] MEDS: Amlodipine 10 MG TAB PO SCH (11:10)
--- NOTE | 2020-07-12 14:52 | PDOC.HOSPP ---
- Subjective Encounter Date: 07/12/20 Encounter Time: 13:00 Subjective: F/u: COVID Patient has been weaned down to 6 L of oxygen. He states he is not gotten out of bed since he has been in the hospital. Denies any significant cough. He states he would not want to go to rehab and would like to go home when he is ready - Objective Vital Signs & Weight: Vital Signs (12 hours) Temp Pulse Resp BP Pulse Ox 07/12/20 11:20 98.3 F 72 22 H 131/79 100 07/12/20 11:10 62 07/12/20 11:09 62 07/12/20 08:35 97.8 F 62 18 125/81 100 07/12/20 08:00 100 07/12/20 03:05 97.6 F 63 22 H 113/69 100 Weight Weight 302 lb 12.8 oz I&O: 07/11/20 07/12/20 07/13/20 06:59 06:59 06:59 Intake Total 1420 760 Output Total 3250 2925 Balance -1830 -2165 Result Diagrams: 07/11/20 11:03 07/11/20 11:03 Additional Labs: Accuchecks 07/12/20 07/12/20 07/11/20 11:16 05:56 20:27 POC Glucose 183 H 270 H 315 H Hospitalist ROS - Review of Systems Constitutional: denies: fever, chills - Medication Medications: Active Medications Generic Name Dose Route Start Last Admin Trade Name Freq PRN Reason Stop Dose Admin Acetaminophen 650 mg 07/03/20 17:06 07/08/20 22:06 Acetaminophen 325 Mg Tab PO 650 mg Q4H PRN Administration Headache/Fever/Mild Pain (1-3) Amlodipine Besylate 10 mg 07/05/20 09:00 07/12/20 11:10 Amlodipine 10 Mg Tab PO 10 mg DAILY DARRELL Administration Ascorbic Acid 1,000 mg 07/04/20 09:00 07/12/20 11:08 Ascorbic Acid 500 Mg Chewable Tablet PO 1,000 mg DAILY DARRELL Administration Benzonatate 100 mg 07/06/20 21:32 07/09/20 17:31 Benzonatate 100 Mg Cap PO 100 mg TIDPRN PRN Administration Cough Dexamethasone 6 mg 07/04/20 15:00 07/11/20 15:43 Dexamethasone 4 Mg/Ml Vial SLOW IVP 6 mg 1500 DARRELL Administration Enoxaparin Sodium 40 mg 07/03/20 21:00 07/12/20 11:07 Enoxaparin Sodium 40 Mg/0.4 Ml Syringe SC 40 mg Q12HR DARRELL Administration Insulin Glargine 10 units/ 0.1 mls @ 0 mls/hr 07/04/20 21:00 07/11/20 22:15 Miscellaneous Medication SC 0.1 mls HS DARRELL Administration Insulin Human Lispro 0 units 07/03/20 23:45 07/10/20 20:10 Humalog 300 Units/3 Ml Vial SC 4 unit .BEDTIME SLIDING SC PRN Administration Bedtime Correctional Scale Insulin Human Lispro 0 units 07/03/20 23:45 07/12/20 11:17 Humalog 300 Units/3 Ml Vial SC 2 unit .MODERATE SLIDING SC PRN Administration Moderate Correctional Scale Lisinopril 5 mg 07/05/20 09:00 07/12/20 11:09 Lisinopril 5 Mg Tab PO 5 mg DAILY DARRELL Administration Metoprolol Succinate 25 mg 07/08/20 09:00 07/12/20 11:09 Metoprolol Succinate Xl 25 Mg Tab PO 25 mg DAILY DARRELL Administration Tramadol Hcl [ 0 each 07/04/20 21:00 07/11/20 20:38 Tramadol Hcl Er] 200 PO 1 each Mg Tab.Er.24h 2100 DARRELL Administration Pregabalin 100 mg 07/04/20 21:00 07/12/20 11:07 Pregabalin 50 Mg Cap PO 100 mg BID DARRELL Administration Sodium Chloride 10 ml 07/03/20 21:00 07/12/20 11:10 Flush - Normal Saline 10 Ml Syringe IVF 10 ml Q12HR DARRELL Administration Sodium Chloride 10 ml 07/03/20 18:45 07/10/20 15:11 Flush - Normal Saline 10 Ml Syringe IVF 10 ml PRN PRN Administration Saline Flush Zinc Sulfate 220 mg 07/04/20 09:00 07/12/20 11:08 Zinc Sulfate 220 Mg Cap PO 220 mg DAILY DARRELL Administration - Exam General Appearance: NAD, awake alert General - other findings: Morbidly obese Eye: anicteric sclera ENT: normocephalic atraumatic, no oropharyngeal lesions, dry oral mucosa Neck: no JVD Heart: RRR, no murmur, no gallops, no rubs Respiratory: CTAB, no wheezes, no rales, no ronchi Gastrointestinal: soft, non-tender, non-distended, normal bowel sounds Extremities: no cyanosis, no clubbing, no edema Skin: normal turgor, no lesions, no rashes Neurological: cranial nerve grossly intact, normal sensation to touch Hosp A/P - Plan CTA thorax: fatty liver. Multifocal patchy areas of ground glass opacity and enlarged LN in the mediastinum measuring up to 12 mm. #Acute hypoxic respiratory failure secondary to COVID pneumonia #Leukocytosis - WBC is up to 11.8 which is stable. Patient is completed 7 days of ceftriaxone. -Patient has been weaned down to 6 L nasal cannula. Continue with physical therapy - #Hyponatremia - sodium 133 which is stable, will monitor #Hypertension -Blood pressure controlled. Continue lisinopril and amlodipine #Diabetes -Blood sugars 100-300. We will add Lantus 8 units subcu nightly
[2020-07-12] MEDS: Dexamethasone 4 mg/ml Vial SLOW IVP SCH (17:24)
[2020-07-12] MEDS: Insulin Glargine 10 UNITS in Pre-Filled Syringe 1 EACH SC SCH (20:26)
[2020-07-12] MEDS: Tramadol Hcl [Tramadol Hcl Er] 200 MG Tab.Er.24h PO SCH (20:27)
[2020-07-13 05:27] LABS: White Blood Cell (WBC) Count 12.6 thou/uL (4.8-10.8)
[2020-07-13 05:47] LABS: Sodium 132 mmol/L (136-145)
[2020-07-13] MEDS: HumaLOG 300 UNITS/3 ML VIAL SC PRN ×4 (06:43→20:50)
[2020-07-13] MEDS: Enoxaparin Sodium 40 MG/0.4 ML SYRINGE SC SCH ×2 (11:15→20:51)
[2020-07-13] MEDS: Amlodipine 10 MG TAB PO SCH (11:16)
[2020-07-13] MEDS: Zinc Sulfate 220 MG CAP PO SCH (11:16)
[2020-07-13] MEDS: Lisinopril 5 MG TAB PO SCH (11:16)
[2020-07-13] MEDS: Ascorbic Acid 500 mg Chewable Tablet PO SCH (11:16)
[2020-07-13] MEDS: Pregabalin 50 MG CAP PO SCH ×2 (11:17→20:53)
--- NOTE | 2020-07-13 14:37 | PDOC.HOSPP ---
- Subjective Encounter Date: 07/13/20 Encounter Time: 11:00 Subjective: F/u; COVID The patient is doing better. He is down to 2L nasal cannula saturating 98%. He has minimal cough. He states he did not ambulate with PT but did some bed exercises and is hoping to ambulate today. He does not want to go to rehab - Objective Vital Signs & Weight: Vital Signs (12 hours) Temp Pulse Resp BP Pulse Ox 07/13/20 11:16 64 07/13/20 11:10 97.6 F 87 16 122/77 96 07/13/20 08:10 97.7 F 64 18 113/73 98 07/13/20 08:00 98 07/13/20 05:05 97.6 F 63 18 107/58 L 97 Weight Weight 302 lb 12.8 oz I&O: 07/12/20 07/13/20 07/14/20 06:59 06:59 06:59 Intake Total 760 1120 Output Total 2925 3400 1000 Balance -2165 -2280 -1000 Result Diagrams: 07/13/20 05:10 07/13/20 05:10 Additional Labs: Accuchecks 07/13/20 07/13/20 07/12/20 11:08 05:05 20:36 POC Glucose 230 H 232 H 302 H 07/12/20 07/11/20 07/10/20 16:44 15:51 19:35 POC Glucose 188 H 201 H 349 H Hospitalist ROS - Review of Systems Constitutional: denies: fever, chills - Medication Medications: Active Medications Generic Name Dose Route Start Last Admin Trade Name Guilhermeq PRN Reason Stop Dose Admin Acetaminophen 650 mg 07/03/20 17:06 07/08/20 22:06 Acetaminophen 325 Mg Tab PO 650 mg Q4H PRN Administration Headache/Fever/Mild Pain (1-3) Amlodipine Besylate 10 mg 07/05/20 09:00 07/13/20 11:16 Amlodipine 10 Mg Tab PO 10 mg DAILY DARRELL Administration Ascorbic Acid 1,000 mg 07/04/20 09:00 07/13/20 11:16 Ascorbic Acid 500 Mg Chewable Tablet PO 1,000 mg DAILY DARRELL Administration Benzonatate 100 mg 07/06/20 21:32 07/09/20 17:31 Benzonatate 100 Mg Cap PO 100 mg TIDPRN PRN Administration Cough Dexamethasone 6 mg 07/04/20 15:00 07/12/20 17:24 Dexamethasone 4 Mg/Ml Vial SLOW IVP 6 mg 1500 DARRELL Administration Enoxaparin Sodium 40 mg 07/03/20 21:00 07/13/20 11:15 Enoxaparin Sodium 40 Mg/0.4 Ml Syringe SC 40 mg Q12HR DARRELL Administration Insulin Glargine 10 units/ 0.1 mls @ 0 mls/hr 07/04/20 21:00 07/12/20 20:26 Miscellaneous Medication SC 0.1 mls HS DARRELL Administration Insulin Human Lispro 0 units 07/03/20 23:45 07/10/20 20:10 Humalog 300 Units/3 Ml Vial SC 4 unit .BEDTIME SLIDING SC PRN Administration Bedtime Correctional Scale Insulin Human Lispro 0 units 07/03/20 23:45 07/13/20 11:19 Humalog 300 Units/3 Ml Vial SC 4 unit .MODERATE SLIDING SC PRN Administration Moderate Correctional Scale Lisinopril 5 mg 07/05/20 09:00 07/13/20 11:16 Lisinopril 5 Mg Tab PO 5 mg DAILY DARRELL Administration Metoprolol Succinate 25 mg 07/08/20 09:00 07/13/20 11:16 Metoprolol Succinate Xl 25 Mg Tab PO 25 mg DAILY DARRELL Administration Tramadol Hcl [ 0 each 07/04/20 21:00 07/12/20 20:27 Tramadol Hcl Er] 200 PO 1 each Mg Tab.Er.24h 2100 DARRELL Administration Pregabalin 100 mg 07/04/20 21:00 07/13/20 11:17 Pregabalin 50 Mg Cap PO 100 mg BID DARRELL Administration Sodium Chloride 10 ml 07/03/20 21:00 07/13/20 12:33 Flush - Normal Saline 10 Ml Syringe IVF 10 ml Q12HR DARRELL Administration Sodium Chloride 10 ml 07/03/20 18:45 07/10/20 15:11 Flush - Normal Saline 10 Ml Syringe IVF 10 ml PRN PRN Administration Saline Flush Zinc Sulfate 220 mg 07/04/20 09:00 07/13/20 11:16 Zinc Sulfate 220 Mg Cap PO 220 mg DAILY DARRELL Administration - Exam General Appearance: NAD, awake alert General - other findings: morbidly obese Eye: PERRL, anicteric sclera ENT: normocephalic atraumatic, no oropharyngeal lesions Neck: no JVD Heart: RRR, no murmur, no gallops, no rubs Respiratory: CTAB, no wheezes, no rales, no ronchi Gastrointestinal: soft, non-tender, non-distended, normal bowel sounds Extremities: no cyanosis, no clubbing, no edema Skin: normal turgor, no lesions, no rashes Hosp A/P - Plan CTA thorax: fatty liver. Multifocal patchy areas of ground glass opacity and enlarged LN in the mediastinum measuring up to 12 mm. #Acute hypoxic respiratory failure secondary to COVID pneumonia #Leukocytosis - WBC is up to 12.6. Could be from steroids. Will continue dexamethasone for one more day. He has completed 7 days of ceftriaxone. -patient is down to 2L nasal cannula. Continue to wean off oxygen if possible #Hyponatremia - sodium 132 which is stable, will monitor #Hypertension -Blood pressure controlled. Continue lisinopril and amlodipine #Diabetes -Blood sugars 100-300. Will increase lantus to 14 units nightly. Continue sliding scale Dispo: discharge hopefully of oxygen
[2020-07-13] MEDS: Dexamethasone 4 mg/ml Vial SLOW IVP SCH (15:34)
[2020-07-13] MEDS: Tramadol Hcl [Tramadol Hcl Er] 200 MG Tab.Er.24h PO SCH (20:51)
[2020-07-13] MEDS ORDERED: Insulin Glargine 14 UNITS in Pre-Filled Syringe 1 EACH SC SCH (21:00)
[2020-07-14] MEDS: HumaLOG 300 UNITS/3 ML VIAL SC PRN ×4 (06:32→21:59)
[2020-07-14] MEDS: Ascorbic Acid 500 mg Chewable Tablet PO SCH (08:00)
[2020-07-14] MEDS: Pregabalin 50 MG CAP PO SCH ×2 (08:14→22:01)
[2020-07-14] MEDS: Zinc Sulfate 220 MG CAP PO SCH (08:16)
[2020-07-14] MEDS: Amlodipine 10 MG TAB PO SCH (08:16)
[2020-07-14] MEDS: Lisinopril 5 MG TAB PO SCH (08:16)
[2020-07-14] MEDS: Enoxaparin Sodium 40 MG/0.4 ML SYRINGE SC SCH ×2 (08:22→22:00)
[2020-07-14 11:50] VITALS: BMI 43.4
--- NOTE | 2020-07-14 12:39 | PDOC.HOSPP ---
- Subjective Encounter Date: 07/14/20 Encounter Time: 12:38 Subjective: F/u: COVID The patient is doing well. He is on 2L nasal cannula saturating 97%. He desaturates while walking but quickly recovers. He prefers to be off oxygen prior to discharge if possible and wants to walk for a few more days He does have cough at night with productive phlegm - Objective Vital Signs & Weight: Vital Signs (12 hours) Temp Pulse Pulse Resp BP BP BP 07/14/20 11:27 98.4 F 69 18 116/66 07/14/20 09:04 87 118/71 121/79 07/14/20 08:32 07/14/20 08:16 87 07/14/20 08:00 97.8 F 63 16 118/71 07/14/20 03:41 97.8 F 87 16 111/54 L Pulse Ox Pulse Ox Pulse Ox 07/14/20 11:27 95 07/14/20 09:04 98 95 07/14/20 08:32 96 07/14/20 08:16 07/14/20 08:00 95 07/14/20 03:41 95 Weight Admit Weight 302 lb 12.8 oz Weight 302 lb 12.8 oz I&O: 07/13/20 07/14/20 07/15/20 06:59 06:59 06:59 Intake Total 1120 720 Output Total 3400 3100 Balance -2280 -2380 Result Diagrams: 07/14/20 04:44 07/13/20 05:10 Additional Labs: Accuchecks 07/14/20 07/14/20 07/13/20 11:03 05:11 20:40 POC Glucose 152 H 324 H 302 H 07/13/20 16:14 POC Glucose 210 H Hospitalist ROS - Review of Systems Constitutional: denies: fever, chills - Medication Medications: Active Medications Generic Name Dose Route Start Last Admin Trade Name Freq PRN Reason Stop Dose Admin Acetaminophen 650 mg 07/03/20 17:06 07/08/20 22:06 Acetaminophen 325 Mg Tab PO 650 mg Q4H PRN Administration Headache/Fever/Mild Pain (1-3) Amlodipine Besylate 10 mg 07/05/20 09:00 07/14/20 08:16 Amlodipine 10 Mg Tab PO 10 mg DAILY DARRELL Administration Ascorbic Acid 1,000 mg 07/04/20 09:00 07/14/20 08:00 Ascorbic Acid 500 Mg Chewable Tablet PO 1,000 mg DAILY DARRELL Administration Benzonatate 100 mg 07/06/20 21:32 07/09/20 17:31 Benzonatate 100 Mg Cap PO 100 mg TIDPRN PRN Administration Cough Dexamethasone 6 mg 07/04/20 15:00 07/13/20 15:34 Dexamethasone 4 Mg/Ml Vial SLOW IVP 6 mg 1500 DARRELL Administration Enoxaparin Sodium 40 mg 07/03/20 21:00 07/14/20 08:22 Enoxaparin Sodium 40 Mg/0.4 Ml Syringe SC 40 mg Q12HR DARRELL Administration Insulin Glargine 14 units/ 0.14 mls @ 0 mls/hr 07/13/20 21:00 07/13/20 20:50 Miscellaneous Medication SC 0.14 mls HS DARRELL Administration Insulin Human Lispro 0 units 07/03/20 23:45 07/13/20 20:50 Humalog 300 Units/3 Ml Vial SC 4 unit .BEDTIME SLIDING SC PRN Administration Bedtime Correctional Scale Insulin Human Lispro 0 units 07/03/20 23:45 07/14/20 12:26 Humalog 300 Units/3 Ml Vial SC 2 unit .MODERATE SLIDING SC PRN Administration Moderate Correctional Scale Lisinopril 5 mg 07/05/20 09:00 07/14/20 08:16 Lisinopril 5 Mg Tab PO 5 mg DAILY DARRELL Administration Metoprolol Succinate 25 mg 07/08/20 09:00 07/14/20 08:15 Metoprolol Succinate Xl 25 Mg Tab PO 25 mg DAILY DARRELL Administration Tramadol Hcl [ 0 each 07/04/20 21:00 07/13/20 20:51 Tramadol Hcl Er] 200 PO 1 each Mg Tab.Er.24h 2100 DARRELL Administration Pregabalin 100 mg 07/04/20 21:00 07/14/20 08:14 Pregabalin 50 Mg Cap PO 100 mg BID DARRELL Administration Sodium Chloride 10 ml 07/03/20 21:00 07/14/20 08:17 Flush - Normal Saline 10 Ml Syringe IVF 10 ml Q12HR DARRELL Administration Sodium Chloride 10 ml 07/03/20 18:45 07/10/20 15:11 Flush - Normal Saline 10 Ml Syringe IVF 10 ml PRN PRN Administration Saline Flush Zinc Sulfate 220 mg 07/04/20 09:00 07/14/20 08:16 Zinc Sulfate 220 Mg Cap PO 220 mg DAILY DARRELL Administration - Exam General Appearance: NAD, awake alert General - other findings: morbidly obese Eye: PERRL, anicteric sclera ENT: normocephalic atraumatic, no oropharyngeal lesions Neck: no JVD Heart: RRR, no murmur, no gallops, no rubs Respiratory: CTAB, no wheezes, no rales, no ronchi Gastrointestinal: soft, non-tender, non-distended, normal bowel sounds Extremities: no cyanosis, no clubbing, no edema Skin: normal turgor, no lesions, no rashes Hosp A/P - Plan CTA thorax: fatty liver. Multifocal patchy areas of ground glass opacity and enlarged LN in the mediastinum measuring up to 12 mm. #Acute hypoxic respiratory failure secondary to COVID pneumonia #Leukocytosis - WBC is up to 14. Could be from steroids. He has completed 7 days of ceftriaxone. Will d/c dexamethasone after today -patient is down to 2L nasal cannula. Continue to wean off oxygen if possible #Hyponatremia - sodium 132 which is stable, will monitor #Hypertension -Blood pressure controlled. Continue lisinopril and amlodipine #Diabetes -Blood sugars still 300's. Will increase lantus to 22 units qhs Dispo: discharge hopefully when off oxygen
[2020-07-14 13:53] LABS: Sodium 131 mmol/L (136-145)
[2020-07-14] MEDS: Dexamethasone 4 mg/ml Vial SLOW IVP SCH (15:48)
[2020-07-14] MEDS: Insulin Glargine 22 UNITS in Pre-Filled Syringe 1 EACH SC SCH (21:59)
[2020-07-14] MEDS: Tramadol Hcl [Tramadol Hcl Er] 200 MG Tab.Er.24h PO SCH (22:01)
[2020-07-15 05:20] LABS: White Blood Cell (WBC) Count 14.8 thou/uL (4.8-10.8)
[2020-07-15] MEDS: HumaLOG 300 UNITS/3 ML VIAL SC PRN ×4 (06:13→22:28)
[2020-07-15] MEDS: Enoxaparin Sodium 40 MG/0.4 ML SYRINGE SC SCH ×2 (08:05→21:45)
[2020-07-15] MEDS: Amlodipine 10 MG TAB PO SCH (08:06)
[2020-07-15] MEDS: Ascorbic Acid 500 mg Chewable Tablet PO SCH (08:06)
[2020-07-15] MEDS: Pregabalin 50 MG CAP PO SCH ×2 (08:06→21:47)
[2020-07-15] MEDS: Zinc Sulfate 220 MG CAP PO SCH (08:06)
[2020-07-15] MEDS: Lisinopril 5 MG TAB PO SCH (08:07)
--- NOTE | 2020-07-15 16:59 | PDOC.HOSPP ---
- Subjective Encounter Date: 07/15/20 Encounter Time: 08:00 Subjective: F/u: COVID THe patient is down to 1L nasal cannula and is saturating well. However on exertion, he desaturated to 70% on nasal cannula . I have asked nursing to evaluate oxygen requirement on exertion in case he needs home oxygen THe patient still does have intermittent cough The patient lost IV access and is difficult stick - Objective Vital Signs & Weight: Vital Signs (12 hours) Temp Pulse Resp BP Pulse Ox 07/15/20 11:07 98.4 F 73 18 121/67 94 L 07/15/20 08:10 97.9 F 65 22 H 120/77 95 Weight Admit Weight 302 lb 12.8 oz Weight 302 lb 14.4 oz I&O: 07/14/20 07/15/20 07/16/20 06:59 06:59 06:59 Intake Total 720 240 Output Total 3100 1850 Balance -9222 -1752 Result Diagrams: 07/15/20 04:41 07/14/20 13:20 Additional Labs: Accuchecks 07/15/20 07/15/20 07/14/20 11:05 05:51 20:58 POC Glucose 253 H 268 H 375 H 07/14/20 17:08 POC Glucose 215 H Hospitalist ROS - Review of Systems Constitutional: denies: fever, chills - Medication Medications: Active Medications Generic Name Dose Route Start Last Admin Trade Name Freq PRN Reason Stop Dose Admin Acetaminophen 650 mg 07/03/20 17:06 07/08/20 22:06 Acetaminophen 325 Mg Tab PO 650 mg Q4H PRN Administration Headache/Fever/Mild Pain (1-3) Amlodipine Besylate 10 mg 07/05/20 09:00 07/15/20 08:06 Amlodipine 10 Mg Tab PO 10 mg DAILY DARRELL Administration Ascorbic Acid 1,000 mg 07/04/20 09:00 07/15/20 08:06 Ascorbic Acid 500 Mg Chewable Tablet PO 1,000 mg DAILY DARRELL Administration Benzonatate 100 mg 07/06/20 21:32 07/09/20 17:31 Benzonatate 100 Mg Cap PO 100 mg TIDPRN PRN Administration Cough Enoxaparin Sodium 40 mg 07/03/20 21:00 07/15/20 08:05 Enoxaparin Sodium 40 Mg/0.4 Ml Syringe SC 40 mg Q12HR DARRELL Administration Insulin Glargine 22 units/ 0.22 mls @ 0 mls/hr 07/14/20 21:00 07/14/20 21:59 Miscellaneous Medication SC 0.22 mls HS DARRELL Administration Insulin Human Lispro 0 units 07/03/20 23:45 07/14/20 21:59 Humalog 300 Units/3 Ml Vial SC 5 unit .BEDTIME SLIDING SC PRN Administration Bedtime Correctional Scale Insulin Human Lispro 0 units 07/03/20 23:45 07/15/20 11:47 Humalog 300 Units/3 Ml Vial SC 6 unit .MODERATE SLIDING SC PRN Administration Moderate Correctional Scale Lisinopril 5 mg 07/05/20 09:00 07/15/20 08:07 Lisinopril 5 Mg Tab PO 5 mg DAILY DARRELL Administration Metoprolol Succinate 25 mg 07/08/20 09:00 07/15/20 08:07 Metoprolol Succinate Xl 25 Mg Tab PO 25 mg DAILY DARRELL Administration Tramadol Hcl [ 0 each 07/04/20 21:00 07/14/20 22:01 Tramadol Hcl Er] 200 PO 1 each Mg Tab.Er.24h 2100 DARRELL Administration Pregabalin 100 mg 07/04/20 21:00 07/15/20 08:06 Pregabalin 50 Mg Cap PO 100 mg BID DARRELL Administration Sodium Chloride 10 ml 07/03/20 21:00 07/15/20 08:07 Flush - Normal Saline 10 Ml Syringe IVF 10 ml Q12HR DARRELL Administration Sodium Chloride 10 ml 07/03/20 18:45 07/10/20 15:11 Flush - Normal Saline 10 Ml Syringe IVF 10 ml PRN PRN Administration Saline Flush Zinc Sulfate 220 mg 07/04/20 09:00 07/15/20 08:06 Zinc Sulfate 220 Mg Cap PO 220 mg DAILY DARRELL Administration - Exam General Appearance: NAD, awake alert Eye: PERRL, anicteric sclera ENT: normocephalic atraumatic, no oropharyngeal lesions Neck: no JVD Heart: RRR, no murmur, no gallops, no rubs Respiratory: CTAB, no wheezes, no rales, no ronchi Gastrointestinal: soft, non-tender, non-distended, normal bowel sounds Extremities: no cyanosis, no clubbing, no edema Skin: normal turgor, no lesions, no rashes Neurological: cranial nerve grossly intact, normal sensation to touch, no weakness Hosp A/P - Plan CTA thorax: fatty liver. Multifocal patchy areas of ground glass opacity and enlarged LN in the mediastinum measuring up to 12 mm. #Acute hypoxic respiratory failure secondary to COVID pneumonia #Leukocytosis - WBC is up to 14. Could be from steroids. He has completed 7 days of ceftriaxone and 10 days of steroids. Will discontinue steroids - patient is down to 1L nasal cannula, still desaturates to 70% on exertion. Exertional O2 eval pe nding #Hyponatremia - sodium is down to 131 #Hypertension -Blood pressure controlled. Continue lisinopril and amlodipine #Diabetes -Blood sugars still 300's. Will increase lantus to 22 units qhs Dispo: discharge hopefully when off oxygen
[2020-07-15] MEDS: Tramadol Hcl [Tramadol Hcl Er] 200 MG Tab.Er.24h PO SCH (21:45)
[2020-07-15] MEDS: Insulin Glargine 22 UNITS in Pre-Filled Syringe 1 EACH SC SCH (21:45)
[2020-07-16 04:47] LABS: Hemoglobin 13.2 g/dL (14.0-18.0); Mean Corpuscular HGB CONC 32.5 g/dL (32.0-36.0); Mean Corpuscular Hemoglobin 28.1 pg (27.0-31.0); Mean Corpuscular Volume 86.5 fL (78.0-98.0); Mean Platelet Volume 7.4 fL (7.4-10.4); Platelet Count 311 thou/uL (130-400); RBC Distribution Width 12.9 % (11.5-14.5); Red Blood Cell (RBC) Count 4.71 mill/uL (4.70-6.10)
[2020-07-16 05:11] LABS: Anion Gap 12 mmol/L (10-20); BUN (Urea Nitrogen) 24 mg/dL (8.4-25.7); Calc. Creatinine Clearance 218 mL/min (70-130); Calcium 8.1 mg/dL (7.8-10.44); Carbon Dioxide 26 mmol/L (22-29); Chloride 101 mmol/L (98-107); Glucose 161 mg/dL (70-105); Potassium 4.1 mmol/L (3.5-5.1); Sodium 135 mmol/L (136-145)
[2020-07-16] MEDS ORDERED: Insulin Glargine 7 UNITS in Pre-Filled Syringe 1 EACH SC SCH (09:00)
[2020-07-16] MEDS: Pregabalin 50 MG CAP PO SCH (10:13)
[2020-07-16] MEDS: Zinc Sulfate 220 MG CAP PO SCH (10:13)
[2020-07-16] MEDS: Ascorbic Acid 500 mg Chewable Tablet PO SCH (10:14)
[2020-07-16] MEDS: Amlodipine 10 MG TAB PO SCH (10:14)
[2020-07-16] MEDS: Lisinopril 5 MG TAB PO SCH (10:14)
[2020-07-16] MEDS: Enoxaparin Sodium 40 MG/0.4 ML SYRINGE SC SCH (10:15)
[2020-07-16 10:56] VITALS: BP 126/71; TEMP 97.9
--- NOTE | 2020-07-16 11:59 | PDOC.DS.DS ---
Provider - Provider Date of Admission: 07/03/20 15:44 Date of Discharge: 07/16/20 Admitting Provider: Aidan Harrington MD Consultations: Cardiology (Dr. Syed Garcia) Primary Care Physician: Unknown Course - Hospital Course Hospital Course: Discharge Diagnoses: 1. Acute hypoxic respiratory failure secondary to COVID 2. Leukocytosis 3. Type II diabetes 4. Hypertension 5. Fatty liver Brief HPI: This is a 54 year old male with past medical history of diabetes, hypertension who presented to [facility] with shortness of breath and hypoxia. He had tested positive for COVID one week prior and was 70% on room air. His CTA chest showed multifocal ground glass opacities. He was started on IV ceftriaxone and admitted for further workup. Hospital Course: #Acute hypoxic respiratory failure secondary to COVID pneumonia #Leukocytosis: - the patient presented with a WBC of 14. This fluctuated during her hospital stay and improved to 10 but increased back to 14 and on the day of discharge is down to 13. The patient completed 7 days of ceftriaxone and 10 days of steroids. The patient did require high flow oxygen for approximately one week and was weaned off oxygen on the day of discharge. He was prescribed tessalon pearls as needed for cough on discharge. #Hyponatremia: the patient's sodium dropped to 131 which improved to 135 on the day of discharge #Diabetes: the patient did require lantus while in the hospital but after steroids were discontinued his blood sugars were in the 120's. He was resumed on his metformin on discharge. #Fatty liver: the patient was advised to lose weight Pertinent Studies: CTA chest 07/03 : no PE. Multifocal patchy areas of ground glass opcities and consolidation in the lung chambers bilaterally. Mildly enlarged lymph nodes in the mediastinum measuring up to 12 mm. Fatty liver Chest X ray 07/03: dense multifocal bilateral infiltrates - Labs Lab Results: 07/16/20 04:27 07/16/20 04:27 Abnormal Lab Results - Last 48 hrs 07/14/20 13:20: Sodium 131 L 07/15/20 04:41: WBC 14.8 H 07/16/20 04:27: Sodium 135 L 07/16/20 04:27: WBC 13.0 H, Hgb 13.2 L, Hct 40.7 L Microbiology - Entire Visit 07/03/20 14:49 Venous blood - Left Arm Blood Culture - Final NO GROWTH IN 5 DAYS 07/03/20 15:05 Venous blood - Right Hand Blood Culture - Final NO GROWTH IN 5 DAYS - Physical Exam Vitals: Vital Signs (12 hours) Temp Pulse Resp BP Pulse Ox 07/16/20 10:54 97.9 F 61 16 126/71 100 07/16/20 10:37 96 07/16/20 09:33 98.4 F 77 16 124/63 92 L 07/16/20 05:22 98 F 55 L 13 115/66 98 Weight Admit Weight 302 lb 12.8 oz Weight 302 lb 14.4 oz Physical Exam: The patient was seen and examined on the day of discharge. General: alert, awake, oriented times three. Morbidly obese CVS: RRR, no murmurs, rubs, gallops Lungs: CTAB Abdomen: +BS, soft, nontender, nondistended Extremities: no edema Problem - Discharge Plan Plan of Treatment: The patient should get a repeat chest X ray in 6 weeks. Follow up fatty liver as an outpatient as well. - Time spent with Patient (mins): 35 Plan - Discharge Medications Prescriptions: Benzonatate [Tessalon] 100 mg PO TIDPRN PRN #21 cap PRN Reason: Cough Metoprolol Succinate [Toprol XL] 25 mg PO DAILY #30 tab Home Medications: Medication Instructions Recorded Confirmed Type Albuterol Sulfate [Proair HFA] 2 puff INH ASDIR PRN 04/19/17 07/03/20 History D-Amphetamine 30 mg PO QAM 04/19/17 07/03/20 History Pregabalin [Lyrica] 1 tab PO BID 04/19/17 07/03/20 History traMADol HCl [Tramadol HCl ER] 200 mg PO DAILY 04/19/17 07/03/20 History Amlodipine [Norvasc] 10 mg PO DAILY 07/03/20 07/03/20 History Lisinopril [Zestril] 5 mg PO DAILY 07/03/20 07/03/20 History metFORMIN [Glucophage] 500 mg PO BID-WM 07/03/20 07/03/20 History Benzonatate [Tessalon] 100 mg PO TIDPRN PRN #21 cap 07/16/20 Rx Metoprolol Succinate [Toprol XL] 25 mg PO DAILY #30 tab 07/16/20 Rx Allergies: Sulfa (Sulfonamide Antibiotics) Allergy (Verified 07/03/20 19:56) Anaphylaxis per pt - Discharge Instructions Activity:: Activity as Tolerated Nourishment:: Diabetic Diet - Follow up Plan Referrals: Yong Bey MD [Active] - 7 Days (follow up in 1 week ) Unknown,Unknown [Primary Care Provider] - Disposition: HOME Quality - Care Measures CORE MEASURES:: N/A
[2020-07-16] MEDS: HumaLOG 300 UNITS/3 ML VIAL SC PRN (12:30)
== END 2020-07-16 13:35 | disposition home or self-care (01) | DRG 871 ==
LOC: ERS 14:23 → 2SW 15:44
PROVIDERS: ADMIT Internal Medicine; ATTEND Internal Medicine
PROC: XW13325 Transfusion of Convalescent Plasma (Nonautologous) into Peripheral Vein, Percutaneous Approach, New Technology Group 5 (ICD-10-PCS; principal; 2020-07-04)
PROC: 8E0ZXY6 Isolation (ICD-10-PCS; 2020-07-04)
DX: A41.89 Other specified sepsis (principal); U07.1 COVID-19; J96.01 Acute respiratory failure with hypoxia; J12.82 Pneumonia due to coronavirus disease 2019; E87.1 Hypo-osmolality and hyponatremia; I47.2 Ventricular tachycardia; Z68.41 Body mass index [BMI] 40.0-44.9, adult; I10 Essential (primary) hypertension; E11.9 Type 2 diabetes mellitus without complications; E66.01 Morbid (severe) obesity due to excess calories; K76.0 Fatty (change of) liver, not elsewhere classified; Z88.2 Allergy status to sulfonamides; Z28.21 Immunization not carried out because of patient refusal; Z82.49 Family history of ischemic heart disease and other diseases of the circulatory system; Z79.899 Other long term (current) drug therapy; Z79.84 Long term (current) use of oral hypoglycemic drugs
CPT/HCPCS: 36415; 36416; 36430; 71045; 71275; 80048; 80053; 82550; 82728; 83605; 83735; 83880; 84295; 84484; 85025; 85027; 85048; 85379; 85610; 85730; 86140; 86850; 86900; 86901; 87040; 93005; 94760; 96365; 96367; 96375; J0456; J0696; J1100; J1650; J1815; J1885; J3490; J7050; P9017; Q9967